=== PATIENT | female | born 2005 | race Caucasian/White ===

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

== ENCOUNTER 2023-01-06 13:52 | Emergency (ER) | payer OTHER, SELFPAY ==
--- NOTE | 2023-01-06 14:17 | HMH.EDGENADL ---
Discharge Plan Disposition Patient Disposition: Home, Self-Care Condition: Good Prescriptions Prescriptions: No Action norethindrone-e.estradiol-iron [12/06 ()] 1 mg-20 mcg (21)/75 mg (7) tablet 1 tab PO DAILY Qty: 28 11RF PNV cmb#95-ferrous fumarate-FA [] 28 mg iron- 800 mcg tablet 1 tab PO DAILY cefdinir 300 mg capsule 300 mg PO BID Qty: 20 0RF Referrals Follow up/Referrals: Vicky Leyva MD [Primary Care Provider] - See instructions Activity Restrictions/Add. Instructions Additional Instructions/Restrictions: Follow-up with your primary care doctor regarding chronic treatment of your migraines. Return to the emergency department with any concerning neurologic symptoms. Clinical Impressions Clinical Impression: Migraine Discharge ED Provider: Damon Whitley Adult HPI General Chief complaint: Headache Stated complaint: passed out 4 times today, face feels numb, foam Time Seen by Provider: 01/06/23 14:17 History of Present Illness HPI narrative: Patient is a 17-year-old female presenting with headache. States this has been slowly worsening for the last several days there is no sudden or acute onset to this. States she had several episodes of feeling lightheaded but there is been no loss of consciousness and no near loss of consciousness to states she has to stop and relax for a moment. Denies any neck stiffness or fever associated with this. States she has had a history of chronic migraines. Recently with her family medicine doctor and got a migraine medication in addition to an isps-hno-usbhcsj NSAID which did not improve her symptoms. She does states she has some paresthesias on bilateral aspects of her face but no other neurologic symptoms currently. Related Data Home Medications Medication Instructions Recorded Confirmed vit no.95-ferrous 1 tab PO DAILY . 12/22/22 12/22/22 fumarate 28 mg-folic acid 800 mcg tablet () Previous Rx's Medication Instructions Recorded norethindrone 1 mg-ethinyl 1 tab PO DAILY #28 tabs 06/25/22 estradiol 20 mcg (21)-iron 75 mg (7) tablet (12/06 ()) cefdinir 300 mg capsule 300 mg PO BID #20 caps 12/22/22 Allergies Allergy/AdvReac Type Severity Reaction Status Date / Time azithromycin [AZITHROMYCIN] Allergy Mild Verified 01/06/23 14:24 [facility] Disclaimer: The information contained in this section may have been updated after the patient was seen, as this information can be updated by other users. Social History Smoking Status: Current every day smoker tobacco type: e-cigarettes alcohol intake: never substance use type: denies use current occupational status: other Travel in the last 8 weeks: None household members: family housing: house ROS Obtained: Yes All systems reviewed & no additional complaints except as documented Physical Exam General General appearance: alert and in no apparent distress Respiratory Respiratory exam: Present normal lung sounds bilaterally Cardiovascular Cardiovascular exam: Present regular rate; Absent tachycardia Neurological Exam Neurological exam: Present alert (Alert and oriented cranial nerves II through XII are intact normal motor and sensory function upper and lower extremities normal coordination examination clinic finger-nose dwui-sv-zhyx gait specifically with regards to her face she does have normal sensation in V1 through V3 distribution bilaterall) Medical Decision Making Silvano Inquiry Pt receiving controlled substance: No Silvano was queried for this patient: No Vital Signs: 01/06/23 14:19 01/06/23 14:43 01/06/23 15:00 Temperature 98.7 F Temperature Source Oral Pulse Rate 78 56 L Pulse Rate [Left] 75 Respiratory Rate 16 20 Blood Pressure 114/74 102/65 L Blood Pressure [Right Arm] 116/81 Blood Pressure Mean 84 74 Blood Pressure Mean [Right A
[2023-01-06 14:19] VITALS: BP 116/81; PULSE 75; RESP 16; TEMP 37.1; O2SAT 98; BMI 23.3
--- NOTE | 2023-01-06 14:40 | ECG_ITS ---
APPROVED REPORT Exam: Resting ECG HR:69 bpm ECG Measurements Heart Rate 69 AXES MT 148 P 71 QRSd 81 QRS 61 QT 358 T 39 QTc 378 Conclusion SINUS RHYTHM WITH SINUS ARRHYTHMIA POSSIBLE RIGHT VENTRICULAR CONDUCTION DELAY [RSR (QR) IN V1/V2] BORDERLINE ECG UNCONFIRMED REPORT Electronically signed by : Bill Londno MD 01/06/2023 18:57:42
[2023-01-06 14:43] VITALS: BP 114/74; PULSE 78; O2SAT 99
[2023-01-06 15:00] VITALS: BP 102/65; PULSE 56; RESP 20; O2SAT 98
[2023-01-06 16:03] VITALS: BP 119/71; PULSE 77; RESP 16; TEMP 36.9; O2SAT 98
== END 2023-01-06 16:04 | disposition home or self-care (01) ==
PROVIDERS: Emergency Provider Student in an Organized Health Care Education/Training Program; PCP Family Medicine
DX: G43.909 Migraine, unspecified, not intractable, without status migrainosus (principal); F17.210 Nicotine dependence, cigarettes, uncomplicated
CPT/HCPCS: 93005; 96361; 96374; 96375; 99285

== ENCOUNTER 2023-03-05 18:08 | Emergency (ER) | payer OTHER, SELFPAY ==
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
[2023-03-05 19:30] VITALS: BP 117/74; PULSE 81; RESP 18; TEMP 37; O2SAT 98; BMI 23.0
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
[2023-03-05 20:13] VITALS: BP 117/74; PULSE 81; RESP 18; TEMP 37; O2SAT 98
== END 2023-03-05 20:14 | disposition home or self-care (01) ==
PROVIDERS: Emergency Provider Nurse Practitioner; PCP Family Medicine
DX: S69.91XA Unspecified injury of right wrist, hand and finger(s), initial encounter (principal); Z87.891 Personal history of nicotine dependence; W22.09XA Striking against other stationary object, initial encounter
CPT/HCPCS: 73130; 99212; 99213; G0463

== ENCOUNTER 2023-05-10 23:52 | Emergency (ER) | payer OTHER, SELFPAY ==
[2023-05-10 23:53] VITALS: BP 115/67; PULSE 75; RESP 17; TEMP 36.7; O2SAT 98; BMI 23.1
--- NOTE | 2023-05-11 00:15 | XR_ITS ---
PROCEDURE INFORMATION: Exam: XR Right Hand Exam date and time: 05/11/2023 12:12 AM Age: 18 years old Clinical indication: Pain; Hand; Right; Additional info: Hand trauma, pain swelling to knuckles TECHNIQUE: Imaging protocol: Radiologic exam of the right hand. Views: 3 or more views. COMPARISON: CR XR HAND RT MIN 3V 03/05/2023 6:15 PM FINDINGS: Bones/joints: The hand is normally aligned. The joint spaces are intact. There is a subtle vertical lucency of the 5th metacarpal head noted on the PA view which could represent a nondisplaced fracture. Old healed distal 5th metacarpal fracture is noted as well. Soft tissues: Normal. IMPRESSION: Subtle vertical lucency of the 5th metacarpal head could represent an acute fracture. Correlation with the clinical exam is recommended.
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
[2023-05-11 01:29] VITALS: BP 118/75; PULSE 72; RESP 17; TEMP 36.7; O2SAT 98
== END 2023-05-11 01:31 ==
PROVIDERS: Emergency Provider Emergency Medicine; PCP Family Medicine
DX: S62.347A Nondisplaced fracture of base of fifth metacarpal bone, left hand, initial encounter for closed fracture (principal); F17.290 Nicotine dependence, other tobacco product, uncomplicated; W22.8XXA Striking against or struck by other objects, initial encounter
CPT/HCPCS: 73130; 99283

== ENCOUNTER → 2023-08-22 08:14 | Outpatient (CLI) | payer OTHER, SELFPAY ==
[2023-08-22 08:56] LABS: Basophils # 0.1 K/mm3 (0-0.2); Basophils % 0.7 % (0.1-2.0); Eosinophils # 0.1 K/mm3 (0.0-0.4); Eosinophils % 2.1 % (0.1-12.0); Hematocrit 41.3 % (37.0-47.0); Hemoglobin 13.3 g/dL (12.2-16.2); Lymphocytes # 2.1 K/mm3 (0.7-4.5); Lymphocytes % 31.4 % (10-50); Mean Corpuscular HGB Conc 32.1 g/dL (31.8-35.4); Mean Corpuscular Hemoglobin 28.4 pg (27.0-31.2); Mean Corpuscular Volume 88.2 fl (81-99); Mean Platelet Volume 7.1 fl (7.4-10.4); Monocytes # 0.4 K/mm3 (0.1-1.0); Monocytes % 5.9 % (1.7-9.3); Neutrophils % 59.8 % (37.0-80.0); Platelet Count 392 K/mm3 (142-424); Red Blood Count 4.69 M/mm3 (4.20-5.40); Red Cell Distribution Width 15.6 % (11.5-17.5); White Blood Count 6.6 K/mm3 (4.5-13.0)
[2023-08-22 10:57] LABS: Alanine Aminotransferase 19 U/L (12-78); Albumin Level 4.5 g/dl (3.5-5.0); Albumin/Globulin Ratio 1.5 (1.1-1.8); Alkaline Phosphatase 90 U/L (38-126); Anion Gap 11.9 mEq/L (5-15); Aspartate Amino Transferase 22 U/L (14-36); Blood Urea Nitrogen 8 mg/dl (7-17); Calcium 9.7 mg/dl (8.4-10.2); Carbon Dioxide 27 mmol/L (22.0-30.0); Chloride 106 mmol/L (98-107); Estimated Glomerular Filt Rate 107 ml/min (>60); GFR (African American) 129 ML/MIN (>60); Globulin 3.1 g/dL (1.3-3.2); Glucose 87 mg/dl (74-100); Glucose,Fasting 87 mg/dl (74-100); Potassium 3.9 mmoL/L (3.5-5.1); Sodium 141 mmol/L (136-145); Total Protein,Serum 7.6 g/dl (6.3-8.2)
[2023-08-22 11:24] LABS: Thyroid Stimulating Hormone 1.27 uIU/mL (0.465-4.68)
[2023-08-23 08:19] LABS: Estradiol 24.2 pg/mL (.); FSH 6.4 mIU/mL (.)
[2023-08-23 16:24] LABS: Insulin Level Total 6.2 uIU/mL (2.6-24.9)
[2023-08-27 06:04] LABS: Testosterone, Total, LC/MS 27 ng/dL (.)
[2023-08-28 08:26] LABS: Anti Mullerian Hormone (AMH) 8.93
== END ==
PROVIDERS: PCP Family Medicine; Visit Provider Obstetrics & Gynecology
DX: Z31.69 Encounter for other general counseling and advice on procreation (principal)
CPT/HCPCS: 36415; 80053; 82397; 82670; 82947; 83001; 83036; 83525; 84403; 84443; 85025

== ENCOUNTER → 2023-09-08 14:39 | Outpatient (CLI) | payer OTHER, SELFPAY ==
--- NOTE | 2023-09-08 14:40 | US_ITS ---
PROCEDURE: US TRANSVAGINAL CLINICAL INDICATION: irregular periods COMPARISON: No exams were available for comparison FINDINGS: Transabdominal sonographic images of the pelvis were obtained. UTERUS: 7.2 cm x 3.6 cmx 2.7 cm with a combined endometrial thickness of 6.7mm. Uterus is anteverted. LEFT OVARY: 3.2 cmx2.6 cmx1.8cm with a volume of 7.9ml. There are multiple small follicles. RIGHT OVARY: 3.2 cmx 3.1 cm x1.6 cm with a volume of 8.3ml. There are multiple small follicles. Both ovaries are seen and appear polycystic. Doppler flow to both ovaries are seen. There is trace fluid in the cul-de-sac. IMPRESSION: 1. Anteverted uterus, normal in shape and size. The endometrium is thin. 2. Both ovaries have a polycystic appearance with multiple small peripheral follicles. 3. There is trace fluid in the cul-de-sac. Dictated by: Arash Amos MD 09/08/2023 19:51 Arash Amos MD in [place] 09/08/2023 19:51
== END ==
PROVIDERS: PCP Family Medicine; Visit Provider Obstetrics & Gynecology
DX: N92.6 Irregular menstruation, unspecified (principal)
CPT/HCPCS: 76830

== ENCOUNTER 2023-12-12 18:36 | Emergency (ER) | payer SELFPAY ==
[2023-12-12 18:38] VITALS: BP 100/69; PULSE 96; RESP 18; TEMP 37.2; O2SAT 100; BMI 20.5
--- NOTE | 2023-12-12 18:42 | XR_ITS ---
PROCEDURE INFORMATION: Exam: XR Right Wrist Exam date and time: 12/12/2023 6:42 PM Age: 18 years old Clinical indication: Injury or trauma; Fall; Blunt trauma (contusions or hematomas); Wrist; Right; Additional info: Fall. Swelling and redness, pain TECHNIQUE: Imaging protocol: Radiologic exam of the right wrist. Views: 3 or more views. COMPARISON: CR [id number] XR wrist RT 2V 01/04/2018 4:26 PM FINDINGS: Bones/joints: Normal. Soft tissues: Normal. IMPRESSION: No acute findings.
--- NOTE | 2023-12-12 18:42 | XR_ITS ---
PROCEDURE INFORMATION: Exam: XR Right Hand Exam date and time: 12/12/2023 6:43 PM Age: 18 years old Clinical indication: Injury or trauma; Fall; Blunt trauma (contusions or hematomas); Hand; Right; Additional info: Fall. Swelling and redness, pain TECHNIQUE: Imaging protocol: Radiologic exam of the right hand. Views: 3 or more views. COMPARISON: CR XR HAND RT MIN 3V 05/11/2023 12:12 AM FINDINGS: Bones/joints: Normal. Soft tissues: Normal. IMPRESSION: No acute findings.
--- NOTE | 2023-12-12 18:42 | XR_ITS ---
PROCEDURE INFORMATION: Exam: XR Right Forearm Exam date and time: 12/12/2023 6:48 PM Age: 18 years old Clinical indication: Injury or trauma; Fall; Blunt trauma (contusions or hematomas); Arm, lower; Right; Additional info: Fall. Swelling and redness at wrist, pain TECHNIQUE: Imaging protocol: Radiologic exam of the right forearm. Views: 2 views. COMPARISON: CR Hand R 12/12/2023 6:43 PM FINDINGS: Bones/joints: Normal. Soft tissues: Normal. IMPRESSION: No acute findings.
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
[2023-12-12 19:36] VITALS: BP 100/69; PULSE 96; RESP 18; TEMP 37.2; O2SAT 100
== END 2023-12-12 19:36 | disposition home or self-care (01) ==
PROVIDERS: Emergency Provider Nurse Practitioner Family; PCP Family Medicine
DX: S63.91XA Sprain of unspecified part of right wrist and hand, initial encounter (principal); S63.501A Unspecified sprain of right wrist, initial encounter; M79.641 Pain in right hand; M25.531 Pain in right wrist; F17.290 Nicotine dependence, other tobacco product, uncomplicated; W19.XXXA Unspecified fall, initial encounter
CPT/HCPCS: 73090; 73110; 73130; 99212; 99214; G0463

== ENCOUNTER 2024-02-04 18:35 | Outpatient (CLI) | payer OTHER, SELFPAY | END 2024-02-04 23:59 | LOC: LAB.DROPOF 18:38 | PROVIDERS: PCP Nurse Practitioner Family; Visit Provider Nurse Practitioner Family | DX: J02.9 Acute pharyngitis, unspecified (principal); R05.1 Acute cough | CPT/HCPCS: 87070 ==

== ENCOUNTER 2024-05-27 23:42 | Emergency (ER) | payer OTHER, SELFPAY ==
[2024-05-27 23:44] VITALS: BP 121/86; PULSE 75; RESP 18; TEMP 36.8; O2SAT 100; BMI 21.4
--- NOTE | 2024-05-27 23:54 | CT_ITS ---
PROCEDURE INFORMATION: Exam: CT Head Without Contrast Exam date and time: 05/28/2024 12:41 AM Age: 19 years old Clinical indication: Pain; Headache; Additional info: Acute headache TECHNIQUE: Imaging protocol: Computed tomography of the head without contrast. Radiation optimization: All CT scans at this facility use at least one of these dose optimization techniques: automated exposure control; mA and/or kV adjustment per patient size (includes targeted exams where dose is matched to clinical indication); or iterative reconstruction. COMPARISON: No relevant prior studies available. FINDINGS: Brain: Normal. No hemorrhage. Unremarkable white matter. No mass effect. Cerebral ventricles: No ventriculomegaly. Pituitary gland and sella: Negative Paranasal sinuses: Visualized sinuses are unremarkable. No fluid levels. Mastoid air cells: Visualized mastoid air cells are well aerated. Orbital cavities: Negative. Parotid and submandibular glands: Negative Bones: Unremarkable. No acute fracture. Soft tissues: Unremarkable. Vasculature: Negative. IMPRESSION: No acute intracranial abnormality.
--- NOTE | 2024-05-28 00:07 | ED_ITS ---
Discharge Plan Disposition Patient Disposition: Home, Self-Care Condition: Good Prescriptions Prescriptions: New ondansetron 4 mg tablet,disintegrating 4 mg PO TID PRN (Reason: nausea and vomiting) 4 Days Qty: 10 0RF No Action levocetirizine [Xyzal] 5 mg tablet 5 mg PO HS Qty: 90 3RF fluticasone propionate [Flonase Allergy Relief] 50 mcg/actuation spray,suspension 1 spray intranasal DAILY Qty: 10 2RF Rx Instructions: administer into each nostril ofloxacin 0.3 % drops 1 drp ophthalmic (eye) QID Qty: 10 0RF Referrals Follow up/Referrals: Annmarie Beckett [Primary Care Provider] - See instructions Activity Restrictions/Add. Instructions Additional Instructions/Restrictions: You were evaluated in the ER. You are appropriate for discharge at this time. Take Tylenol or ibuprofen as needed for pain, do not exceed the recommended dose on the bottle. Take the prescribed Zofran if needed for nausea/vomiting. Drink plenty of fluids. Make an appointment with your primary care physician for reevaluation in 2 to 3 days. Return to the ER with new, worsening, or otherwise concerning symptoms. Clinical Impressions Clinical Impression: Headache Discharge ED Provider: Earnestine Peters Adult HPI General Chief complaint: Headache Stated complaint: hardwick, vomiting, dizziness Time Seen by Provider: 05/27/24 23:54 Mode of Arrival: Ambulatory Source of Information: Patient and Significant Other Limitations: No Limitations Description of Symptoms (Recalled from ER Triage Doc. by RN): Patient reports that she's had a mild generalized headache since lunch today. Approximately 2310 this headache became signficiantly worse with nausea, emesis x3, lightheadedness, and 10/10 sharp, generalized pain. Patient states that the pain is all over her head. Took no medication at home. Denies light sensitivity or sound sensitivity. History of Present Illness HPI narrative: Otherwise healthy 19-year-old female presents to the ER for concerns of headache. She states she had mild headache since around lunchtime today, but around 11 PM she suddenly had severe worsening with nausea and 3 episodes of emesis. She describes the pain as 10 out of 10 and sharp, throbbing throughout the head. She denies sensitivity to light or sound but states that looking up causes some discomfort. No vision changes. No diarrhea. Patient does not report a history of migraines, she states she cannot swallow pills so she has not taken anything for her headache. No other symptoms at this time. Patient ambulatory on arrival. She denies deficits in the arms or legs. Related Data Previous Rx's Medication Instructions Recorded fluticasone propionate 50 1 spray intranasal DAILY #10 mL 02/04/24 mcg/actuation nasal spray,suspension (Flonase Allergy Relief) levocetirizine 5 mg tablet (Xyzal) 5 mg PO HS #90 tabs 02/04/24 ofloxacin 0.3 % eye drops 1 drp ophthalmic (eye) QID #10 mL 04/30/24 ondansetron 4 mg disintegrating 4 mg PO TID PRN nausea and 05/28/24 tablet vomiting 4 days #10 tabs Allergies Allergy/AdvReac Type Severity Reaction Status Date / Time azithromycin [AZITHROMYCIN] Allergy Mild Verified 04/30/24 13:30 [facility] Disclaimer: The information contained in this section may have been updated after the patient was seen, as this information can be updated by other users. Medical History Self mutilating behavior Gastroenteritis Left wrist injury Forearm contusion Fx metacarpal Hand injury Amenorrhea Closed fracture of 5th metacarpal Irregular menstrual cycle Fracture of hand Sprain of hand, right Seasonal allergies Medical clearance for incarceration Hand injury Migraine PCOS (polycystic ovarian syndrome) Surgical History No history of previous surgery Family History Mother Cancer unknown type Social History Smoking Status: Never smoker alcohol intake: never substance use type: denies use current occupational status: other Travel in the last 8 weeks: None household members: family housing: house ROS Obtained: Yes All systems reviewed & no additional complaints except as documented Constitutional Constitutional: Reports headache(s) Eyes Eyes: Denies change in vision ENT Ears, Nose, Mouth, and Throat: Reports headache(s) Cardiovascular Cardiovascular: Denies chest pain, Denies dyspnea and Denies leg edema Respiratory Respiratory: Denies cough and Denies dyspnea Gastrointestinal Gastrointestingal: Reports nausea and vomiting; Denies abdominal pain, constipation or diarrhea Genitourinary Female Genitourinary: Denies dysuria Musculoskeletal Musculoskeletal: Denies arthralgias, Denies myalgias, Denies numbness and Denies tingling Integumentary/Breasts Skin/Breast: Denies change in pigmentation Neurologic Neurologic: Reports headache(s), Denies numbness and Denies tingling Physical Exam General General appearance: alert and in no apparent distress Head Head exam: atraumatic and normocephalic Eye Eye exam: Present PERRL and EOMI (Patient reports increase in headache pain when looking up, no eye pain with extraocular movements); Absent nystagmus ENT ENT exam: Present mucous membranes moist Neck Neck exam: Present normal inspection and full ROM Chest Chest inspection: Present symmetric chest wall rise Respiratory Respiratory exam: Absent respiratory distress or stridor Cardiovascular Cardiovascular exam: Present regular rate and normal rhythm Extremities Exam Extremities exam: Present full ROM Neurological Exam Neurological exam: Present alert, oriented X3, CN II-XII intact and normal gait; Absent motor sensory deficit Psychiatric Psychiatric exam: Present normal affect and normal mood Skin Skin exam: Present warm and dry Medical Decision Making Silvano Inquiry Pt receiving controlled substance: No Vital Signs: 05/27/24 23:44 05/28/24 00:58 05/28/24 01:09 Temperature 98.2 F Temperature Source Oral Pulse Rate 80 Pulse Rate [Left Radial] 75 Respiratory Rate 18 Blood Pressure 116/82 105/80 L Blood Pressure [Right Arm] 121/86 Blood Pressure Mean 91 87 Blood Pressure Mean [Right Arm] 97 Blood Pressure Source Blood Pressure Source [Right Arm] Automatic Cuff Blood Pressure Position Blood Pressure Position [Right Arm] Sitting 02 Sat by Pulse Oximetry 100 100 Oxygen Delivery Method Room Air Room Air 05/28/24 01:15 Temperature Temperature Source Pulse Rate 60 Pulse Rate [Left Radial] Respiratory Rate 20 Blood Pressure 105/80 L Blood Pressure [Right Arm] Blood Pressure Mean Blood Pressure Mean [Right Arm] Blood Pressure Source Automatic Cuff Blood Pressure Source [Right Arm] Blood Pressure Position Sitting Blood Pressure Position [Right Arm] 02 Sat by Pulse Oximetry 99 Oxygen Delivery Method Room Air Lab Data Lab Results 05/28/24 00:13: WBC 8.5, RBC 4.47, Hgb 12.9, Hct 40.2, MCV 89.9, MCH 28.9, MCHC 32.1, RDW 15.4, Plt Count 380, MPV 6.9 L, Neut % (Auto) 52.2, Lymph % (Auto) 39.6, Perry % (Auto) 5.4, Eos % (Auto) 1.9, Baso % (Auto) 0.9, Neut # (Auto) 4.4, Lymph # (Auto) 3.4, Perry # (Auto) 0.5, Eos # (Auto) 0.2, Baso # (Auto) 0.1, Sodium 142, Potassium 3.8, Chloride 109 H, Carbon Dioxide 27, Anion Gap 9.8, BUN 9, Creatinine 0.70, Estimated Creat Clear 114, Estimated GFR 106, Est GFR ( Amer) 128, Glucose 98, Calcium 9.8, Total Bilirubin 0.4, AST 28, ALT 22, Alkaline Phosphatase 80, Total Protein 8.7 H, Albumin 4.8, Globulin 3.9 H, Albumin/Globulin Ratio 1.2, Serum HCG, Qual Negative 05/28/24 00:13 05/28/24 00:13 Orders (Tests/Meds): ED MEDICATIONS Discontinued Medications Generic Name Dose Route Start Last Admin Trade Name Freq PRN Reason Stop Dose Admin Acetaminophen 1,000 mg 05/28/24 00:06 05/28/24 00:15 Acetaminophen 1,000mg/100ml Vial IV 05/28/24 00:07 1,000 mg ONCE ONE Administration Diphenhydramine HCl 25 mg 05/28/24 00:47 05/28/24 01:09 Diphenhydramine 50mg/Ml Vial IV 05/28/24 00:48 25 mg ONCE ONE Administration Lactated Ringer's 1,000 mls @ 999 mls/hr 05/28/24 00:06 05/28/24 00:14 Lactated Ringer's 1000 Ml Bag IV 05/28/24 01:06 999 mls/hr .Q1H1M ONE Administration Ketorolac Tromethamine 30 mg 05/28/24 00:47 05/28/24 01:10 Ketorolac 30mg/Ml Vial IV 05/28/24 00:48 30 mg ONCE ONE Administration Ondansetron HCl 4 mg 05/28/24 00:06 05/28/24 00:15 Ondansetron 4mg/2ml Vial IV 05/28/24 00:07 4 mg ONCE ONE Administration ORDERS Category Date Time Status CT head/brain wo con Stat Cat Scan 05/27/24 23:54 Completed CBC w/Auto Diff [Complete Blood Count Auto Diff] Stat Lab 05/27/24 23:54 Completed CMP [Comprehensive Metabolic Panel] Stat Lab 05/27/24 23:54 Completed HCG Qualitative, Serum Stat Lab 05/27/24 23:54 Completed Medical Decision Narrative: In summary, this 19-year-old female presents to the emergency department today with headache with sudden acute worsening accompanied by nausea and vomiting. On initial evaluation patient is hemodynamically stable, afebrile, GCS 15, no neurologic deficits. Differential diagnosis includes but is not limited to headache, migraine, given the acute worsening with associated symptoms of nausea and vomiting, I did consider spontaneous intracranial bleed. Based on these concerns, I ordered basic labs, test, CT head. Patient received IV acetaminophen and Zofran as well as IV fluids in the ER. Labs personally reviewed demonstrate no leukocytosis or anemia, CMP nonactionable, no findings of kidney or liver dysfunction, test negative. CT head personally interpreted does not demonstrate any acute cranial abnormality such as bleed, midline shift, or mass. See radiology read for final interpretation. On reassessment patient has had improvement of symptoms and is playing on her phone. She is appropriate for discharge at this time. She is encouraged to take Tylenol and ibuprofen at home and was prescribed Zofran. Patient was given instructions on symptomatic management, follow up instructions, and return precautions for the emergency department. Patient indicated understanding and was discharged in stable condition. Critical Care Critical Care Time Critical Care Time: No
[2024-05-28] MEDS: LACTATED RINGERS 1000ML 1,000 ML 999 ML IV (00:14)
[2024-05-28] MEDS: ACETAMINOPHEN 1,000MG/100ML VIAL 1000 MG IV (00:15)
[2024-05-28] MEDS: ONDANSETRON 4MG/2ML VIAL 4 MG IV (00:15)
[2024-05-28 00:23] LABS: Basophils # 0.1 K/mm3 (0-0.2); Basophils % 0.9 % (0.1-2.0); Eosinophils # 0.2 K/mm3 (0.0-0.4); Eosinophils % 1.9 % (0.1-12.0); Hematocrit 40.2 % (37.0-47.0); Hemoglobin 12.9 g/dL (12.2-16.2); Lymphocytes # 3.4 K/mm3 (0.7-4.5); Lymphocytes % 39.6 % (10-50); Mean Corpuscular HGB Conc 32.1 g/dL (31.8-35.4); Mean Corpuscular Hemoglobin 28.9 pg (27.0-31.2); Mean Corpuscular Volume 89.9 fl (81-99); Mean Platelet Volume 6.9 fl (7.4-10.4); Monocytes # 0.5 K/mm3 (0.1-1.0); Monocytes % 5.4 % (1.7-9.3); Neutrophils # 4.4 K/mm3 (1.8-7.8); Neutrophils % 52.2 % (37.0-80.0); Platelet Count 380 K/mm3 (142-424); Red Blood Count 4.47 M/mm3 (4.20-5.40); Red Cell Distribution Width 15.4 % (11.5-17.5); White Blood Count 8.5 K/mm3 (4.8-10.8)
[2024-05-28 00:26] LABS: Chloride 109 mmol/L (98-107)
[2024-05-28 00:27] LABS: Potassium 3.8 mmoL/L (3.5-5.1); Sodium 142 mmol/L (136-145)
[2024-05-28 00:28] LABS: HCG Qualitative, Serum Negative (Negative)
[2024-05-28 00:29] LABS: Alanine Aminotransferase 22 U/L (12-78); Aspartate Amino Transferase 28 U/L (14-36); Bilirubin,Total 0.4 mg/dl (0.2-1.3); Blood Urea Nitrogen 9 mg/dl (7-17); Creatinine Clearance Estimated 114 mL/min (50-200); Estimated Glomerular Filt Rate 106 ml/min (>60); GFR (African American) 128 ML/MIN (>60)
[2024-05-28 00:30] LABS: Albumin Level 4.8 g/dl (3.5-5.0); Albumin/Globulin Ratio 1.2 (1.1-1.8); Alkaline Phosphatase 80 U/L (38-126); Anion Gap 9.8 mEq/L (5-15); Calcium 9.8 mg/dl (8.4-10.2); Carbon Dioxide 27 mmol/L (22.0-30.0); Globulin 3.9 g/dL (1.3-3.2); Glucose 98 mg/dl (74-100); Total Protein,Serum 8.7 g/dl (6.3-8.2)
[2024-05-28 00:58] VITALS: BP 116/82
[2024-05-28 01:09] VITALS: BP 105/80; PULSE 80; O2SAT 100
[2024-05-28] MEDS: diphenhydrAMINE 50MG/ML VIAL 25 MG IV (01:09)
[2024-05-28] MEDS: KETOROLAC 30MG/ML VIAL 30 MG IV (01:10)
[2024-05-28 01:15] VITALS: BP 105/80; PULSE 60; RESP 20; O2SAT 99
[2024-05-28 01:32] VITALS: BP 113/65; PULSE 67; RESP 17; TEMP 36.7; O2SAT 100
== END 2024-05-28 01:35 | disposition home or self-care (01) ==
PROVIDERS: Emergency Provider Emergency Medicine; PCP Family Medicine Sports Medicine
DX: R51.9 Headache, unspecified (principal); R11.2 Nausea with vomiting, unspecified; R42 Dizziness and giddiness
CPT/HCPCS: 70450; 80053; 84703; 85025; 96361; 96374; 96375; 99284; J0131; J1885; J2405; J7120

== ENCOUNTER 2024-07-23 10:56 | Emergency (ER) | payer OTHER, SELFPAY ==
--- NOTE | 2024-07-23 11:31 | EXP.UTC ---
Discharge Plan Disposition Patient Disposition: Home, Self-Care Condition: Good Prescriptions Prescriptions: New cephalexin 500 mg capsule 500 mg PO QID 7 Days Qty: 28 0RF No Action metronidazole 0.75 % cream 1 applic topical HS Qty: 45 0RF Referrals Follow up/Referrals: Annmarie Beckett [Primary Care Provider] - See instructions Activity Restrictions/Add. Instructions Additional Instructions/Restrictions: Keep the wound clean and dry. Keep a dressing on it if you are going to be getting it dirty. Watch the wound for signs of infection, such as redness, swelling, drainage, fever. etc. Take tylenol or ibuprofen for pain. Follow up with your regular doctor. Return in 7 days to have the sutures removed. GO TO THE ER FOR ANY WORSENING SYMPTOMS OR CONCERNS. Clinical Impressions Clinical Impression: Laceration of left thumb, Need for Tdap vaccination Stand Alone Forms Stand Alone Forms: Work/School Release Instructions Patient Instructions: DI for Laceration Repair -- Finger, Tetanus, Diphtheria, Pertussis (Tdap) Vaccine Print Language Print Language: Citizen Of [place] Discharge ED Provider: Serge Watt 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 Her tetanus immunization is not up to date. Related Data Previous Rx's ?Medication ?Instructions ?Recorded metronidazole 0.75 % topical cream 1 applic topical HS #45 grams 07/08/24 cephalexin 500 mg capsule 500 mg PO QID 7 days #28 caps 07/23/24 Allergies Allergy/AdvReac Type Severity Reaction Status Date / Time azithromycin [AZITHROMYCIN] Allergy Mild Verified 07/08/24 14:31 adapalene Allergy Unknown Verified 07/08/24 14:45 [facility] Disclaimer: The information contained in this section may have been updated after the patient was seen, as this information can be updated by other users. Medical History Self mutilating behavior Gastroenteritis Left wrist injury Forearm contusion Fx metacarpal Hand injury Amenorrhea Closed fracture of 5th metacarpal Irregular menstrual cycle Fracture of hand Sprain of hand, right Seasonal allergies Medical clearance for incarceration Hand injury Migraine PCOS (polycystic ovarian syndrome) Surgical History No history of previous surgery Family History Mother Cancer unknown type Social History Smoking Status: Never smoker alcohol intake: never substance use type: denies use current occupational status: other Travel in the last 8 weeks: None household members: family housing: house ROS Obtained: Yes All systems reviewed & no additional complaints except as documented Constitutional Constitutional: Denies chills and Denies fever(s) Eyes Eyes: Denies eye discharge ENT Ears, Nose, Mouth, and Throat: Denies dizziness, Denies otalgia and Denies sore throat Cardiovascular Cardiovascular: Denies chest pain Respiratory Respiratory: Denies shortness of breath, Denies chest congestion, Denies cough, Denies stridor and Denies wheezing Gastrointestinal Gastrointestingal: Denies nausea or vomiting Musculoskeletal Musculoskeletal: Reports system reviewed and no additional complaints, except as documented and Denies arthralgias Integumentary/Breasts Skin/Breast: Reports as per HPI Neurologic Neurologic: Denies dizziness and Denies paresthesias Allergic/Immunologic Allergic/Immunologic: Denies wheezing Physical Exam General General appearance: alert and in no apparent distress Head Head exam: atraumatic, normocephalic and normal inspection Eye Eye exam: Present normal appearance, PERRL and EOMI ENT ENT exam: Present normal exam, normal oropharynx, mucous membranes moist, TM's normal bilaterally and normal external ear exam Neck Neck exam: Present normal inspection, full ROM and trachea midline; Absent meningismus or lymphadenopathy Chest Chest inspection: Present normal inspection and symmetric chest wall rise; Absent tenderness Respiratory Respiratory exam: Present normal lung sounds bilaterally; Absent respiratory distress Cardiovascular Cardiovascular exam: Present regular rate and normal rhythm; Absent JVD Abdominal Exam Abdominal exam: Present soft and normal bowel sounds; Absent distention, tenderness or guarding Extremities Exam Extremities exam: Present normal inspection, full ROM and normal capillary refill; Absent calf tenderness Back Exam Back exam: Present normal inspection; Absent tenderness Neurological Exam Neurological exam: Present alert and oriented X3 Psychiatric Psychiatric exam: Present normal affect and normal mood Skin Skin exam: Present other (there is a 1 cm linear laceration on the lateral aspect of the tip of her left thumb. no nail involvement. no deep tissue or tendon damage noted. no foreign body. she has good 2 point touch discrimination distal to the wound. ) Lymphatic Lymphatic Findings: no adenopathy Medical Decision Making Medical Records Medical records reviewed: No I reviewed the patient's medical records. Silvano Inquiry Pt receiving controlled substance: No Procedures Risk/Benefits of Procedure(s) Were Explained: Yes Laceration Laceration 1: Site: thumb Side (If applicable): left Size (cm): 1 Description: linear Depth: simple, single layer Local Anesthetic: lidocaine 1% Amount of anesthesia used (mL): 0.5 Pre-repair: wound explored, irrigated extensively and deep structures intact Skin layer closed with: nylon Size (cm): 6-0 Number of sutures: 4 Technique: simple, interrupted (She tolerated this well, good closure was obtained, the edges were approximated well. )
[2024-07-23 11:50] VITALS: BP 120/87; PULSE 67; RESP 16; TEMP 36.9; O2SAT 100; BMI 21.4
[2024-07-23] MEDS: TET/DIPHTH/PERT-ADULT 0.5ML SYRINGE 0.5 ML IM (12:14)
[2024-07-23 12:54] VITALS: BP 120/87; PULSE 67; RESP 16; TEMP 36.9; O2SAT 100
== END 2024-07-23 12:55 | disposition home or self-care (01) ==
PROVIDERS: Emergency Provider Nurse Practitioner Family; PCP Family Medicine Sports Medicine
DX: S61.012A Laceration without foreign body of left thumb without damage to nail, initial encounter (principal); Z23 Encounter for immunization; W26.8XXA Contact with other sharp object(s), not elsewhere classified, initial encounter
CPT/HCPCS: 12001; 90471; 90715; 99213; 99214; G0463

== ENCOUNTER 2024-09-02 18:07 | Outpatient (CLI) | payer OTHER, SELFPAY ==
[2024-09-02 17:39] LABS: Coronavirus 19, PCR Not Detected (NotDetected); Influenza A, PCR Not Detected (NotDetected); Influenza B, PCR Not Detected (NotDetected)
== END 2024-09-02 23:59 | disposition home or self-care (01) ==
LOC: LAB.DROPOF 18:08
PROVIDERS: PCP Student in an Organized Health Care Education/Training Program; Visit Provider Student in an Organized Health Care Education/Training Program
DX: Z20.822 Contact with and (suspected) exposure to COVID-19 (principal); Z20.818 Contact with and (suspected) exposure to other bacterial communicable diseases
CPT/HCPCS: 87070; 87636

== ENCOUNTER 2024-12-01 00:16 | Emergency (ER) | payer OTHER, SELFPAY ==
[2024-12-01] VITALS (7 sets, daily range): BP systolic 101–120; BP diastolic 57–98; PULSE 58–91; RESP 18–20; TEMP 36.8–36.9; O2SAT 99–100; BMI 22.3
--- NOTE | 2024-12-01 00:26 | CT_ITS ---
PROCEDURE INFORMATION: Exam: CT Maxillofacial Without Contrast Exam date and time: 12/01/2024 1:23 AM Age: 19 years old Clinical indication: Injury or trauma; Fall and other: Syncope struck head loc R mandible/eyebrow pain; Blunt trauma (contusions or hematomas) and other: Syncope struck head loc R mandible/eyebrow pain; Other: Right side of face, forehead to chin; Injury details: PT passed out, struck right side of face TECHNIQUE: Imaging protocol: Computed tomography of the face without contrast. Radiation optimization: All CT scans at this facility use at least one of these dose optimization techniques: automated exposure control; mA and/or kV adjustment per patient size (includes targeted exams where dose is matched to clinical indication); or iterative reconstruction. COMPARISON: CT HEAD/BRAIN WO CON 12/01/2024 1:21 AM FINDINGS: Paranasal sinuses: No air-fluid levels. Orbital cavities: Orbits are normal. Globes are unremarkable. Bones: No acute fracture. Soft tissues: Unremarkable. IMPRESSION: No acute findings.
--- NOTE | 2024-12-01 00:26 | CT_ITS ---
PROCEDURE INFORMATION: Exam: CT Head Without Contrast Exam date and time: 12/01/2024 1:21 AM Age: 19 years old Clinical indication: Injury or trauma; Fall; Blunt trauma (contusions or hematomas) and other: Syncope struck head loc TECHNIQUE: Imaging protocol: Computed tomography of the head without contrast. Radiation optimization: All CT scans at this facility use at least one of these dose optimization techniques: automated exposure control; mA and/or kV adjustment per patient size (includes targeted exams where dose is matched to clinical indication); or iterative reconstruction. COMPARISON: CT HEAD/BRAIN WO CON 05/28/2024 12:41 AM FINDINGS: Brain: Normal. No hemorrhage. Unremarkable white matter. No mass effect. Cerebral ventricles: No ventriculomegaly. Paranasal sinuses: Visualized sinuses are unremarkable. No fluid levels. Mastoid air cells: Visualized mastoid air cells are well aerated. Bones: Unremarkable. No acute fracture. Soft tissues: Unremarkable. IMPRESSION: No acute intracranial abnormality.
--- NOTE | 2024-12-01 00:29 | ED_ITS ---
Discharge Plan Disposition Patient Disposition: Home, Self-Care Condition: Good Prescriptions Prescriptions: No Action ondansetron 4 mg tablet,disintegrating 4 mg PO Q8H PRN (Reason: nausea and vomiting) Qty: 10 0RF mgaxvicikdcpacf-qfgszakmh-GO [Bromfed DM] 2-30-10 mg/5 mL syrup 5 ml PO Q4-6H PRN (Reason: cold symptoms) Qty: 118 0RF Referrals Follow up/Referrals: Provider,Referral, MD [Primary Care Provider] - See instructions Activity Restrictions/Add. Instructions Additional Instructions/Restrictions: You were evaluated in the ER and are appropriate for discharge at this time. Take Tylenol, ibuprofen if needed for pain, do not exceed the recommended dose on the bottle. Drink water and eat a small snack each time you take these medications to avoid side effects. Drink plenty of fluids. Make an appointment with your primary care doctor for reevaluation in 2 to 3 days. Return to the ER with new, worsening, or otherwise concerning symptoms. Clinical Impressions Clinical Impression: Syncope, Right facial pain Print Language Print Language: Ghanaian Discharge ED Provider: Earnestine Peters General Adult HPI General Chief complaint: Recheck/Abnormal Lab/Rx Stated complaint: fall, hit head Time Seen by Provider: 12/01/24 00:20 History of Present Illness HPI narrative: 19-year-old female who reports no daily medications, no known drug allergies presents to the ER for complaints of syncope and fall. Patient reports today she was feeling mildly unwell with a slight headache. She states she had poor oral intake today and decided to get up to go to the kitchen when she started feeling dizzy as she was walking. She states she started feeling nauseous so she diverted to the bathroom and as she did her vision started to go dark and she syncopized. She reportedly struck the right side of her face on the toilet on the way down. She reports passing out before the fall. She was not unconscious for very long and quickly regained full consciousness. She is only complaining of right sided facial pain, she states she actually does not have significant headache at this time, no neck pain, no numbness, tingling, weakness anywhere. She states it hurts to open and close her jaw and she feels like she cannot close her mouth all the way but when she does she does report that her teeth feel like they aligned. She does not taste blood in her mouth. She denies any chest pain, shortness of breath, she has not had any vomiting but still feels mildly nauseous, she reports she is currently on her period. She denies any cough, congestion, sore throat, runny nose, diarrhea, abdominal pain, or any other associated symptoms. Related Data Previous Rx's ?Medication ?Instructions ?Recorded aukxknrgmbvqofi-eoqlllqhpkbhbpq-DW 5 ml PO Q4-6H PRN cold symptoms 09/02/24 2 mg-30 mg-10 mg/5 mL oral syrup #118 mL (Bromfed DM) ondansetron 4 mg disintegrating 4 mg PO Q8H PRN nausea and 09/02/24 tablet vomiting #10 tabs Allergies Allergy/AdvReac Type Severity Reaction Status Date / Time azithromycin (AZITHROMYCIN) Allergy Mild Verified 09/02/24 10:38 adapalene Allergy Unknown Verified 09/02/24 10:38 [facility] Disclaimer: The information contained in this section may have been updated after the patient was seen, as this information can be updated by other users. Medical History Self mutilating behavior Gastroenteritis Left wrist injury Forearm contusion Fx metacarpal Hand injury Amenorrhea Closed fracture of 5th metacarpal Irregular menstrual cycle Fracture of hand Sprain of hand, right Seasonal allergies Medical clearance for incarceration Hand injury Migraine PCOS (polycystic ovarian syndrome) Surgical History No history of previous surgery Family History Mother Cancer unknown type Social History Smoking Status: Unknown if ever smoked alcohol intake: never substance use type: denies use current occupational status: other Travel in the last 8 weeks: None household members: family housing: house Have you lived/traveled outside US in past 30 days?: No Contact w/someone who lives/traveled outside US past 30 days?: No Exposure to someone with infectious disease in past 14 days?: No Do you have a fever (greater than 100.4 F or 38 C)?: No Have you tested positive for COVID-19: No Exposed to someone with COVID-19 in past 14 days?: No Do you have a sore throat?: No Do you have a cough?: No Do you have any weakness?: No Do you have any diarrhea?: No Are you experiencing any unusual bleeding?: No Do you have any muscle aches/pain?: No Do you have any abdominal pain?: No Are you experiencing loss of taste or smell?: No Other Medical History Have you received the Flu Vaccine for this season: No Have you received the Pneumonia Vaccine: No ROS Obtained: Yes Systems reviewed as appropriate & no additional complaints except as documented per HPI Physical Exam General General appearance: alert and in no apparent distress Head Head exam: atraumatic and normocephalic Eye Eye exam: Present PERRL and EOMI ENT ENT exam: Present mucous membranes moist and other (No obvious intraoral injury, no palpable deformity of the mandible, patient has tenderness along the right mandible without swelling, also tenderness of right TMJ) Neck Neck exam: Present normal inspection and full ROM; Absent tenderness Chest Chest inspection: Present symmetric chest wall rise Respiratory Respiratory exam: Present normal lung sounds bilaterally; Absent respiratory distress, wheezes or stridor Cardiovascular Cardiovascular exam: Present regular rate and normal rhythm Abdominal Exam Abdominal exam: Present soft; Absent distention or tenderness Extremities Exam Extremities exam: Present full ROM; Absent tenderness, edema or joint swelling Back Exam Back exam: Present full ROM; Absent tenderness Neurological Exam Neurological exam: Present alert, oriented X3 and normal gait; Absent motor sensory deficit Psychiatric Psychiatric exam: Present normal affect and normal mood Skin Skin exam: Present warm and dry Medical Decision Making Medical Records Medical records reviewed: Yes I reviewed the patient's medical records. Screening: Per USPSTF and CDC recommendations, given the prevalence of disease in our region, it is our hospital?s policy to screen for HIV and viral Hepatitis for all patients aged 18 and over and those with ongoing risk factors. MR Comment: Patient was evaluated and in December 2023 with [employer]. She was being evaluated for PCOS at that time. Advised at that time on how to take metformin. Patient reports she is not currently taking this medication. Silvano Inquiry Pt receiving controlled substance: No Vital Signs: 12/01/24 00:19 12/01/24 01:16 Temperature 98.5 F Temperature Source Oral Pulse Rate [Left Radial] 84 91 H Respiratory Rate 18 20 Blood Pressure [Right Arm] 110/57 L 120/89 Blood Pressure Mean [Right Arm] 74 99 Blood Pressure Source [Right Arm] Automatic Cuff Blood Pressure Position [Right Arm] Sitting 02 Sat by Pulse Oximetry 99 100 Oxygen Delivery Method Room Air Room Air Lab Data Lab Results 12/01/24 00:40: SARS-CoV-2 (PCR) Not detected, Influenza A Untype (PCR) Not detected, Influenza Type B (PCR) Not detected 12/01/24 00:42: WBC 9.1, RBC 4.19 L, Hgb 12.0 L, Hct 36.7 L, MCV 87.6, MCH 28.6, MCHC 32.7, RDW 13.3, Plt Count 342, MPV 8.9, Neut % (Auto) 66.7, Lymph % (Auto) 23.2, [place] % (Auto) 8.0, Eos % (Auto) 1.3, Baso % (Auto) 0.5, Neut # (Auto) 6.1, Lymph # (Auto) 2.1, [place] # (Auto) 0.7, Eos # (Auto) 0.1, Baso # (Auto) 0.1, PT 12.2, INR 1.10, Sodium 137, Potassium 3.6, Chloride 105, Carbon Dioxide 26, Anion Gap 9.6, BUN 10, Creatinine 0.70, Estimated Creat Clear 118, Estimated GFR 106, Est GFR ( Amer) 128, Glucose 112 H, Calcium 9.5, Total Bilirubin 0.4, AST 25, ALT 18, Alkaline Phosphatase 63, Troponin I < 0.01, Total Protein 7.4, Albumin 4.5, Globulin 2.9, Albumin/Globulin Ratio 1.6 12/01/24 00:53: Urine HCG, Qual Negative 12/01/24 00:42 12/01/24 00:42 Orders (Tests/Meds): ED MEDICATIONS Discontinued Medications Generic Name Dose Route Start Last Admin Trade Name Freq PRN Reason Stop Dose Admin Acetaminophen 1,000 mg 12/01/24 01:34 12/01/24 01:39 Acetaminophen 500mg Tab PO 12/01/24 01:35 1,000 mg ONCE ONE Administration Lactated Ringer's 1,000 mls @ 999 mls/hr 12/01/24 00:31 12/01/24 00:58 Lactated Ringer's 1000 Ml Bag IV 12/01/24 01:31 999 mls/hr .Q1H1M ONE Administration Ketorolac Tromethamine 15 mg 12/01/24 01:34 12/01/24 01:39 Ketorolac 30mg/Ml Vial IV 12/01/24 01:35 15 mg ONCE ONE Administration Ondansetron HCl 4 mg 12/01/24 00:31 12/01/24 00:58 Ondansetron 4mg/2ml Vial IV 12/01/24 00:32 4 mg ONCE ONE Administration ORDERS Category Date Time Status CT facial bones wo con Stat Cat Scan 12/01/24 00:[address] head/brain wo con Stat Cat Scan 12/01/24 00:26 Completed CBC w/Auto Diff [Complete Blood Count Auto Diff] Stat Lab 12/01/24 00:42 Completed CMP [Comprehensive Metabolic Panel] Stat Lab 12/01/24 00:42 Completed HIV Combo Routine Lab 12/01/24 00:31 Ordered Hepatitis C Ab Qual. W/ RFX Routine Lab 12/01/24 00:31 Ordered PT INR [Prothrombin Time INR] Stat Lab 12/01/24 00:42 Completed Rapid PCR Covid and Flu A/B Stat Lab 12/01/24 00:40 Completed Trop I [Troponin I] Stat Lab 12/01/24 00:42 Completed Urine , HCG Qual. Stat Lab 12/01/24 00:53 Completed ECG Request Stat Y 12/01/24 00:26 Ordered Medical Decision Narrative: In summary, this 19-year-old female presents to the emergency department today with concerns of right facial pain after syncope and fall. On initial evaluation patient is hemodynamically stable, afebrile, GCS 15, no focal neurologic deficits, patient has no tenderness of her neck, range of motion full, exam is only notable for tenderness to palpation of the right mandible and right TMJ as well as right eyebrow but there is no swelling or deformity appreciated, no obvious bruising, patient does not have any malocclusion or obvious intraoral injury. Differential diagnosis includes but is not limited to facial fracture, dental injury, I have low suspicion for skull fracture or intracranial bleed though these were considered, also considered cervical spine injury however by [place] C-spine rules, low risk for cervical spine injury I do not believe cervical imaging is indicated at this time. With the patient syncope I considered dehydration, electrolyte abnormality, vasovagal episode, arrhythmia, Brugada, WPW, HCM, or other arrhythmia genic abnormality. Based on these concerns, I ordered serum labs, test, CT imaging, EKG. ECG personally interpreted demonstrates sinus rhythm, rate 74, normal axis, normal OK and QTc, no STEMI. No WPW, Brugada, HCM, or other concerning abnormality. Patient received IV fluids, Zofran for treatment of current symptoms. Labs personally reviewed demonstrate No leukocytosis, trace anemia, normal platelets, PT/INR normal, CMP nonactionable, test negative. CT head personally interpreted does not demonstrate acute intracranial abnormality, see radiology read for final interpretation. CT face personally interpreted does not demonstrate obvious osseous injury, see radiology read for final interpretation. Patient received Toradol, acetaminophen for pain management. On reevaluation, patient is feeling improved. She states she would like to go home which I believe is appropriate at this time. Labs and imaging are reassuring and nonactionable. Patient was given instructions on symptomatic monitoring and management, follow up instructions, and return precautions for the emergency department. Patient indicated understanding and was discharged in stable condition. Critical Care Critical Care Time Critical Care Time: No
--- NOTE | 2024-12-01 00:43 | ECG_ITS ---
APPROVED REPORT Exam: Resting ECG HR:74 bpm ECG Measurements Heart Rate 74 AXES AK 149 P 80 QRSd 92 QRS 80 QT 362 T 58 QTc 389 Conclusion SINUS RHYTHM WITH SINUS ARRHYTHMIA POSSIBLE RIGHT VENTRICULAR CONDUCTION DELAY [RSR (QR) IN V1/V2] No STEMI Electronically signed by : PATTI FISHER, 12/01/2024 06:43:07
[2024-12-01 00:51] LABS: Coronavirus 19, PCR Not Detected (NotDetected); Influenza A, PCR Not Detected (NotDetected); Influenza B, PCR Not Detected (NotDetected)
--- NOTE | 2024-12-01 00:52 | PC.NURSE ---
EKG completed, 20G IV placed to RAC, pt in bathroom attempting to give UA at this time.
[2024-12-01 00:57] LABS: Basophils # 0.1 K/mm3 (0-0.2); Basophils % 0.5 % (0.1-2.0); Eosinophils # 0.1 K/mm3 (0.0-0.4); Eosinophils % 1.3 % (0.1-12.0); Hematocrit 36.7 % (37.0-47.0); Lymphocytes # 2.1 K/mm3 (0.7-4.5); Lymphocytes % 23.2 % (10-50); Mean Corpuscular HGB Conc 32.7 g/dL (31.8-35.4); Mean Corpuscular Hemoglobin 28.6 pg (27.0-31.2); Mean Corpuscular Volume 87.6 fl (81-99); Mean Platelet Volume 8.9 fl (7.4-10.4); Monocytes # 0.7 K/mm3 (0.1-1.0); Neutrophils # 6.1 K/mm3 (1.8-7.8); Neutrophils % 66.7 % (37.0-80.0); Platelet Count 342 K/mm3 (142-424); Red Blood Count 4.19 M/mm3 (4.20-5.40); Red Cell Distribution Width 13.3 % (11.5-17.5); White Blood Count 9.1 K/mm3 (4.8-10.8)
[2024-12-01] MEDS: LACTATED RINGERS 1000ML 1,000 ML 999 ML IV (00:58)
[2024-12-01] MEDS: ONDANSETRON 4MG/2ML VIAL 4 MG IV (00:58)
[2024-12-01 01:04] LABS: Albumin Level 4.5 g/dl (3.5-5.0); Chloride 105 mmol/L (98-107); Potassium 3.6 mmoL/L (3.5-5.1); Sodium 137 mmol/L (136-145)
[2024-12-01 01:06] LABS: Blood Urea Nitrogen 10 mg/dl (7-17); Creatinine Clearance Estimated 118 mL/min (50-200); Estimated Glomerular Filt Rate 106 ml/min (>60); GFR (African American) 128 ML/MIN (>60)
[2024-12-01 01:07] LABS: Alanine Aminotransferase 18 U/L (12-78); Albumin/Globulin Ratio 1.6 (1.1-1.8); Alkaline Phosphatase 63 U/L (38-126); Anion Gap 9.6 mEq/L (5-15); Aspartate Amino Transferase 25 U/L (14-36); Bilirubin,Total 0.4 mg/dl (0.2-1.3); Calcium 9.5 mg/dl (8.4-10.2); Carbon Dioxide 26 mmol/L (22.0-30.0); Globulin 2.9 g/dL (1.3-3.2); Glucose 112 mg/dl (74-100); Total Protein,Serum 7.4 g/dl (6.3-8.2)
[2024-12-01 01:08] LABS: Prothrombin Time 12.2 seconds (10.1-12.5)
[2024-12-01 01:15] LABS: Urine Pregnancy, HCG Qual. Negative (Negative)
--- NOTE | 2024-12-01 01:31 | PC.NURSE ---
Pt to CT scan
[2024-12-01 01:34] LABS: Troponin I < 0.01 ng/ml (0.00-0.034)
[2024-12-01] MEDS: ACETAMINOPHEN 500MG TAB 1000 MG PO (01:39)
[2024-12-01] MEDS: KETOROLAC 30MG/ML VIAL 15 MG IV (01:39)
--- NOTE | 2024-12-01 02:52 | PC.NURSE ---
pt asleep at this time. family at bedside voices no needs.
== END 2024-12-01 03:08 | disposition home or self-care (01) ==
PROVIDERS: Emergency Provider Emergency Medicine
DX: R55 Syncope and collapse (principal); R51.9 Headache, unspecified; R42 Dizziness and giddiness; R11.0 Nausea; W18.39XA Other fall on same level, initial encounter; Y93.89 Activity, other specified; Y92.008 Other place in unspecified non-institutional (private) residence as the place of occurrence of the external cause
CPT/HCPCS: 70450; 70486; 80053; 81025; 84484; 85025; 85610; 87636; 93005; 96361; 96374; 96375; 99284; J1885; J2405; J7120

== ENCOUNTER 2025-01-01 13:56 | Emergency (ER) | payer OTHER, SELFPAY ==
[2025-01-01 14:16] VITALS: BP 135/80; PULSE 87; RESP 18; TEMP 37; O2SAT 100; BMI 20.7
--- NOTE | 2025-01-01 14:25 | PC.NURSE ---
pt ambulatory to bathroom, then roomed in bed 8.
[2025-01-01 14:31] LABS: Microscopic, Urine URINE MICROSCOPIC (MICROSCOPIC)
[2025-01-01 14:34] LABS: Appearance,Urine CLEAR (Clear); Blood, Urine Negative (Negative); Color,Urine YELLOW (Yellow); Glucose,Urine (UA) Negative (Negative); Ketones,Urine Negative (Negative); Leukocyte Esterase,Urine TRACE (Negative); Nitrate,Urine Negative (Negative); Protein,Urine Negative (Negative); Specific Gravity, Urine >= 1.030 (1.005-1.030); Urobilinogen,Urine 0.2 EU/dl (0.2)
[2025-01-01 14:35] LABS: Urine Pregnancy, HCG Qual. Negative (Negative)
--- NOTE | 2025-01-01 14:45 | US_ITS ---
PROCEDURE INFORMATION: Exam: US Duplex Artery and Vein of the Abdominal and/or Reproductive Organs. Complete Ovaries Exam date and time: 01/01/2025 3:25 PM Age: 19 years old Clinical indication: Pelvic pain; Additional info: Llq abd pain TECHNIQUE: Imaging protocol: Real-time duplex ultrasound scan of the arterial and venous flow with color Doppler flow and spectral waveform analysis with image documentation. Duplex exam was performed to evaluate for torsion and other vascular conditions. Total images: 208 COMPARISON: US TRANSVAGINAL 09/08/2023 3:10 PM FINDINGS: Right ovary/adnexa: Blood flow is demonstrated to the right ovary. Left ovary/adnexa: Blood flow is demonstrated to the left ovary. IMPRESSION: No evidence of ovarian torsion. PROCEDURE INFORMATION: Exam: US Pelvis, Transvaginal, Non-Obstetric Exam date and time: 01/01/2025 3:25 PM Age: 19 years old Clinical indication: Pelvic pain; Additional info: Llq abd pain TECHNIQUE: Imaging protocol: Real-time transvaginal pelvic (non-obstetric) ultrasound with image documentation. Transvaginal imaging was used for better evaluation of the endometrium, adnexa, and/or cervix. COMPARISON: US TRANSVAGINAL 09/08/2023 3:10 PM FINDINGS: Uterus: Uterus measures 7.8 x 2.9 x 3.7 cm. Endometrium measures 7 mm. No uterine masses. Right ovary/adnexa: Right ovary measures 3.5 x 2.5 x 2.1 cm. Left ovary/adnexa: Left ovary measures 3.1 x 2.5 x 2.2 cm. Intraperitoneal space: No free fluid. Other findings: No adnexal masses IMPRESSION: 1. No adnexal masses or free fluid. 2. No uterine masses.
--- NOTE | 2025-01-01 14:45 | ED_ITS ---
<Statement entered by Corrine Whitley MD - 01/02/25 14:15> I was consulted by the CHARLES, and we discussed the complexity of the problems being addressed. I approved the treatment and management plan for this patient's care in the emergency department, thus performing a substantive portion of the medical decision making. Corrine Whitley MD, MISTI, FACEP Discharge Plan Disposition Patient Disposition: Home, Self-Care Condition: Good Prescriptions Prescriptions: New potassium chloride [Klor-Con 10] 10 mEq tablet extended release 10 meq PO BID 5 Days Qty: 10 0RF No Action escitalopram oxalate 10 mg tablet 10 mg PO DAILY Referrals Follow up/Referrals: Vicky Leyva MD [Primary Care Provider] - See instructions Activity Restrictions/Add. Instructions Additional Instructions/Restrictions: Please take your oral potassium as directed. Follow-up with your PCP within 7 days. Increase your fluid intake. Return to the ED for worsening of condition Clinical Impressions Clinical Impression: Acute hypokalemia Abdominal pain Qualifiers: Abdominal location: generalized Qualified Code(s): R10.84 - Generalized abdominal pain Instructions Patient Instructions: DI for Acute Abdominal Pain Print Language Print Language: [place]dean Discharge ED Provider: Corrine Whitley General Adult HPI General Chief complaint: Abdominal Pain Stated complaint: lower abd pain Time Seen by Provider: 01/01/25 14:23 Mode of Arrival: Ambulatory Source of Information: Patient and Significant Other Limitations: No Limitations Description of Symptoms (Recalled from ER Triage Doc. by RN): Patient presents to triage ambulatory with significant other. Patient endorses sharp pain around her belly button radiating to her left lower quadrant. States her last bowel movement was yesterday. Last menstrual period was one month ago. States she is having unprotected sex and is not on control. Denies nausea or vomiting. Denies fevers. Denies any urinary symptoms. History of Present Illness HPI narrative: 19-year-old female presents to the ED Related Data Home Medications ?Medication ?Instructions ?Recorded ?Confirmed escitalopram oxalate 10 mg tablet 10 mg PO DAILY 01/01/25 01/01/25 Previous Rx's ?Medication ?Instructions ?Recorded potassium chloride 10 mEq 10 meq PO BID 5 days #10 tabs 01/01/25 tablet,extended release (Klor-Con) Allergies Allergy/AdvReac Type Severity Reaction Status Date / Time azithromycin (AZITHROMYCIN) Allergy Mild Hives Verified 01/01/25 15:20 adapalene Allergy Unknown Hives Verified 01/01/25 15:20 [facility] Disclaimer: The information contained in this section may have been updated after the patient was seen, as this information can be updated by other users. Medical History Self mutilating behavior Gastroenteritis Left wrist injury Forearm contusion Fx metacarpal Hand injury Amenorrhea Closed fracture of 5th metacarpal Irregular menstrual cycle Fracture of hand Sprain of hand, right Seasonal allergies Medical clearance for incarceration Hand injury Migraine PCOS (polycystic ovarian syndrome) Surgical History No history of previous surgery Family History Mother Cancer unknown type Social History Smoking Status: Current every day smoker tobacco type: e-cigarettes alcohol intake: never substance use type: denies use current occupational status: other Travel in the last 8 weeks: None household members: family housing: house Have you lived/traveled outside US in past 30 days?: No Contact w/someone who lives/traveled outside US past 30 days?: No Exposure to someone with infectious disease in past 14 days?: No Do you have a fever (greater than 100.4 F or 38 C)?: No Have you tested positive for COVID-19: No Exposed to someone with COVID-19 in past 14 days?: No Do you have a sore throat?: No Do you have a cough?: No Do you have any weakness?: No Do you have any diarrhea?: No Are you experiencing any unusual bleeding?: No Do you have any muscle aches/pain?: No Do you have any abdominal pain?: No Are you experiencing loss of taste or smell?: No Other Medical History Have you received the Flu Vaccine for this season: No Have you received the Pneumonia Vaccine: No ROS Obtained: Yes Systems reviewed as appropriate & no additional complaints except as documented Physical Exam General General appearance: alert and in no apparent distress Head Head exam: atraumatic and normocephalic Eye Eye exam: Present normal appearance and PERRL ENT ENT exam: Present normal exam Neck Neck exam: Present normal inspection Chest Chest inspection: Present normal inspection and symmetric chest wall rise; Absent tenderness Respiratory Respiratory exam: Present normal lung sounds bilaterally Cardiovascular Cardiovascular exam: Present regular rate Abdominal Exam Abdominal exam: Present soft and normal bowel sounds; Absent tenderness Extremities Exam Extremities exam: Present normal inspection and full ROM Back Exam Back exam: Present normal inspection and full ROM Neurological Exam Neurological exam: Present alert and oriented X3 Psychiatric Psychiatric exam: Present normal affect and normal mood Skin Skin exam: Present warm and dry Medical Decision Making Medical Records Screening: Per USPSTF and CDC recommendations, given the prevalence of disease in our region, it is our hospital?s policy to screen for HIV and viral Hepatitis for all patients aged 18 and over and those with ongoing risk factors. Silvano Inquiry Pt receiving controlled substance: No Silvano was queried for this patient: No Vital Signs: 01/01/25 14:16 01/01/25 14:53 01/01/25 15:00 Temperature 98.6 F Temperature Source Oral Pulse Rate 77 70 Pulse Rate [Radial] 87 Respiratory Rate 18 Blood Pressure 108/73 L 116/75 Blood Pressure [R Arm] 135/80 Blood Pressure Mean [R Arm] 98 Blood Pressure Source [R Arm] Automatic Cuff 02 Sat by Pulse Oximetry 100 95 99 Oxygen Delivery Method Room Air Room Air Room Air Lab Data Lab Results 01/01/25 14:25: Urine Color Yellow, Urine Appearance Clear, Urine pH 6.0, Ur Specific [place] >= 1.030, Urine Protein Negative, Urine Glucose (UA) Negative, Urine Ketones Negative, Urine Blood Negative, Urine Nitrate Negative, Urine Bilirubin 1+ A, Urine Urobilinogen 0.2, Ur Leukocyte Esterase Trace, Urine RBC None, Urine WBC 5-10, Ur Squamous Epith Cells 3-5, Urine Bacteria Trace, Urine HCG, Qual Negative 01/01/25 14:30: WBC 6.7, RBC 4.35, Hgb 12.5, Hct 37.8, MCV 86.9, MCH 28.7, MCHC 33.1, RDW 13.2, Plt Count 395, MPV 9.3, Neut % (Auto) 60.6, Lymph % (Auto) 29.7, [place] % (Auto) 7.7, Eos % (Auto) 1.2, Baso % (Auto) 0.7, Neut # (Auto) 4.1, Lymph # (Auto) 2.0, [place] # (Auto) 0.5, Eos # (Auto) 0.1, Baso # (Auto) 0.1, Sodium 145, Potassium 3.2 L, Chloride 104, Carbon Dioxide 29, Anion Gap 15.2 H, BUN 7, Creatinine 0.80, Estimated Creat Clear 96, Estimated GFR 91, Est GFR ( Amer) 110, Glucose 71 L, Calcium 9.7, Total Bilirubin 0.7, AST 24, ALT 17, Alkaline Phosphatase 80, Total Protein 8.6 H, Albumin 5.3 H, Globulin 3.3 H, Albumin/Globulin Ratio 1.6, HCV Ab NASEEM w/Rflx PCR Qn Negative, HIV Ag/Ab Combo Qual Negative 01/01/25 14:30 01/01/25 14:30 Orders (Tests/Meds): ED MEDICATIONS Discontinued Medications Generic Name Dose Route Start Last Admin Trade Name Freq PRN Reason Stop Dose Admin Potassium Chloride 40 meq 01/01/25 15:37 01/01/25 15:51 Potassium Chloride 20meq Tab PO 01/01/25 15:38 40 meq ONCE ONE Administration ORDERS Category Date Time Status US transvaginal Stat Exams 01/01/25 14:45 Completed Complete Blood Count Auto Diff Stat Lab 01/01/25 14:30 Completed Comprehensive Metabolic Panel Stat Lab 01/01/25 14:30 Completed HIV Combo Stat Lab 01/01/25 14:30 Completed Hepatitis C Ab Qual. W/ RFX Stat Lab 01/01/25 14:30 Completed Urinalysis and Microscopic Stat Lab 01/01/25 14:25 Completed Urine , HCG Qual. Stat Lab 01/01/25 14:25 Completed Medical Decision Narrative: In summary, patient is a 19-year-old female no significant PMHx who presents to the ED for left lower quadrant abdominal pain that has been intermittent for the past 3 days. Patient is currently not having abdominal pain. Patient also states she may be . She has no additional medical complaints at this time. Upon initial exam, patient is alert, oriented and cooperative. Patient is hemodynamically stable. Physical exam remarkable for soft and nontender abdomen. Differential diagnosis includes ovarian torsion, ovarian cyst, appendicitis, infectious process, UTI, pyelonephritis, among others. Initial workup will be conducted with hematologic labs and ultrasound Initial workup reviewed by me. Hematologic labs remarkable for CBC unremarkable for any leukocytosis, stable H&H. CMP notable to have hypokalemia, potassium 3.2. Urinalysis unremarkable for any infectious process. test negative. Transvaginal ultrasound no adnexal masses or free fluid, no uterine masses. No ovarian torsion. Upon repeat evaluation, patient had an acceptable resolution of symptoms. They were ambulatory in the ED. Able to tolerate p.o. discussed with patient that she will need to follow-up with PCP within 7 days. Discussed that due to the hypokalemia we will administer 5 days of oral potassium. We discussed return precautions to the ED and patient verbalized understanding. Critical Care Critical Care Time Critical Care Time: No
[2025-01-01 14:51] LABS: Basophils # 0.1 K/mm3 (0-0.2); Basophils % 0.7 % (0.1-2.0); Eosinophils # 0.1 K/mm3 (0.0-0.4); Eosinophils % 1.2 % (0.1-12.0); Hematocrit 37.8 % (37.0-47.0); Hemoglobin 12.5 g/dL (12.2-16.2); Lymphocytes % 29.7 % (10-50); Mean Corpuscular HGB Conc 33.1 g/dL (31.8-35.4); Mean Corpuscular Hemoglobin 28.7 pg (27.0-31.2); Mean Corpuscular Volume 86.9 fl (81-99); Mean Platelet Volume 9.3 fl (7.4-10.4); Monocytes # 0.5 K/mm3 (0.1-1.0); Monocytes % 7.7 % (1.7-9.3); Neutrophils # 4.1 K/mm3 (1.8-7.8); Neutrophils % 60.6 % (37.0-80.0); Platelet Count 395 K/mm3 (142-424); Red Blood Count 4.35 M/mm3 (4.20-5.40); Red Cell Distribution Width 13.2 % (11.5-17.5); White Blood Count 6.7 K/mm3 (4.8-10.8)
[2025-01-01 14:53] VITALS: BP 108/73; PULSE 77; O2SAT 95
[2025-01-01 14:53] LABS: Bacteria,Urine Trace /lpf; Bilirubin,Urine 1+ (Negative)
[2025-01-01 14:54] LABS: Albumin Level 5.3 g/dl (3.5-5.0); Chloride 104 mmol/L (98-107); Potassium 3.2 mmoL/L (3.5-5.1); Sodium 145 mmol/L (136-145)
[2025-01-01 14:57] LABS: Alanine Aminotransferase 17 U/L (12-78); Albumin/Globulin Ratio 1.6 (1.1-1.8); Alkaline Phosphatase 80 U/L (38-126); Anion Gap 15.2 mEq/L (5-15); Aspartate Amino Transferase 24 U/L (14-36); Bilirubin,Total 0.7 mg/dl (0.2-1.3); Blood Urea Nitrogen 7 mg/dl (7-17); Calcium 9.7 mg/dl (8.4-10.2); Carbon Dioxide 29 mmol/L (22.0-30.0); Creatinine Clearance Estimated 96 mL/min (50-200); Estimated Glomerular Filt Rate 91 ml/min (>60); GFR (African American) 110 ML/MIN (>60); Globulin 3.3 g/dL (1.3-3.2); Glucose 71 mg/dl (74-100); Total Protein,Serum 8.6 g/dl (6.3-8.2)
[2025-01-01 15:00] VITALS: BP 116/75; PULSE 70; O2SAT 99
[2025-01-01 15:38] LABS: HIV Combo NEGATIVE (Negative)
[2025-01-01 15:46] LABS: Hepatitis C Ab Qual. W/ RFX NEGATIVE (Negative)
[2025-01-01] MEDS: POTASSIUM CHLORIDE 20MEQ TAB 40 MEQ PO (15:51)
[2025-01-01 17:09] VITALS: BP 116/75; PULSE 70; RESP 19; TEMP 37
== END 2025-01-01 17:10 | disposition home or self-care (01) ==
PROVIDERS: Emergency Provider Student in an Organized Health Care Education/Training Program; PCP Family Medicine
DX: E87.6 Hypokalemia (principal); R10.32 Left lower quadrant pain; F17.290 Nicotine dependence, other tobacco product, uncomplicated
CPT/HCPCS: 76830; 80053; 81001; 81025; 85025; 86803; 87389; 99283

== ENCOUNTER 2025-01-28 16:27 | Emergency (ER) | payer OTHER, SELFPAY ==
[2025-01-28 16:39] VITALS: BP 117/78; PULSE 74; RESP 18; TEMP 37.5; O2SAT 98; BMI 21.4
--- NOTE | 2025-01-28 16:47 | XR_ITS ---
PROCEDURE INFORMATION: Exam: XR Left Forearm Exam date and time: 01/28/2025 4:55 PM Age: 19 years old Clinical indication: Pain; Hand; Left; Additional info: Left hand injury TECHNIQUE: Imaging protocol: Radiologic exam of the left forearm. Views: 2 views. COMPARISON: CR XR FOREARM LT 2V 01/28/2025 4:55 PM FINDINGS: Bones/joints: Normal. Soft tissues: Normal. IMPRESSION: No acute findings.
--- NOTE | 2025-01-28 16:47 | XR_ITS ---
PROCEDURE INFORMATION: Exam: XR Left Hand Exam date and time: 01/28/2025 4:55 PM Age: 19 years old Clinical indication: Pain; Hand; Bilateral; Additional info: Left hand injury TECHNIQUE: Imaging protocol: Radiologic exam of the left hand. Views: 3 or more views. COMPARISON: CR Hand L 05/06/2019 4:32 PM FINDINGS: Bones/joints: Normal. Soft tissues: Normal. IMPRESSION: No acute findings.
--- NOTE | 2025-01-28 16:59 | ED_ITS ---
Discharge Plan Disposition Patient Disposition: Home, Self-Care Condition: Good Prescriptions Prescriptions: No Action escitalopram oxalate 10 mg tablet 10 mg PO DAILY potassium chloride [Klor-Con 10] 10 mEq tablet extended release 10 meq PO BID 5 Days Qty: 10 0RF Referrals Follow up/Referrals: Vicky Leyva MD [Primary Care Provider] - See instructions Activity Restrictions/Add. Instructions Additional Instructions/Restrictions: Call your family doctor to establish care for this visit to the emergency department and schedule follow-up within 48 hours to ensure improvement. If you have any worsening of your condition or any other concerning signs or symptoms, return to the emergency department or your primary care doctor for further fang luation. Take Tylenol 1000 mg every 6 hours (4 times daily) and ibuprofen 400 mg every 6 hours (4 times daily) as needed with food and water to prevent GI upset and kidney damage. Clinical Impressions Clinical Impression: Crushing injury of hand, left Print Language Print Language: Maltese Discharge ED Provider: Gerard Shelby General Adult HPI <Chauncey George - Last Filed: 01/28/25 17:00> General Chief complaint: Extremity Injury, Upper Stated complaint: AO 01/28/25 1600 left wrist injury Time Seen by Provider: 01/28/25 16:49 Mode of Arrival: Ambulatory Source of Information: Patient Description of Symptoms (Recalled from ER Triage Doc. by RN): Pt dropped a 20# dumbbell onto her left hand. Swelling and bruising noted. Pt is able to wiggle her fingers, but has limited ROM. sensation intact. Strong pulse, brisk cap refill Related Data Home Medications ?Medication ?Instructions ?Recorded ?Confirmed escitalopram oxalate 10 mg tablet 10 mg PO DAILY 01/01/25 01/01/25 Previous Rx's ?Medication ?Instructions ?Recorded potassium chloride 10 mEq 10 meq PO BID 5 days #10 tabs 01/01/25 tablet,extended release (Klor-Con) Allergies Allergy/AdvReac Type Severity Reaction Status Date / Time azithromycin (AZITHROMYCIN) Allergy Mild Hives Verified 01/28/25 16:58 adapalene Allergy Unknown Hives Verified 01/28/25 16:58 <Gerard Shelby MD - Last Filed: 01/28/25 17:46> History of Present Illness HPI narrative: Please note that above description of symptoms, in this electronic medical record under categorization of recalled from ER triage doctor by RN are reflective of an initial nursing assessment, however, is not reflective of my full history and physical exam that was personally taken and clarified. C onsequentially, this preceding description of symptoms, which may include the patient's categorized chief complaint in the EMR, do not reflect my personal clinical impression, and the ultimate description of history of present illness and patient stated complaints should be deferred to this section of the note. Unless stated otherwise or congruent with this section of the note, additional signs, symptoms, or incongruence should be interpreted as inaccurate with my clinical impression. [facility] <Chauncey Mcculloughkaren - Last Filed: 01/28/25 17:00> [facility] Disclaimer: The information contained in this section may have been updated after the patient was seen, as this information can be updated by other users. Medical History Self mutilating behavior Gastroenteritis Left wrist injury Forearm contusion Fx metacarpal Hand injury Amenorrhea Closed fracture of 5th metacarpal Irregular menstrual cycle Fracture of hand Sprain of hand, right Seasonal allergies Medical clearance for incarceration Hand injury Migraine PCOS (polycystic ovarian syndrome) Surgical History No history of previous surgery Family History Mother Cancer unknown type Social History Smoking Status: Current every day smoker tobacco type: e-cigarettes alcohol intake: never substance use type: denies use current occupational status: other Travel in the last 8 weeks: None household members: family housing: house Have you lived/traveled outside [place] in past 30 days?: No Contact w/someone who lives/traveled outside [place] past 30 days?: No Exposure to someone with infectious disease in past 14 days?: No Do you have a fever (greater than 100.4 F or 38 C)?: No Have you tested positive for COVID-19: No Exposed to someone with COVID-19 in past 14 days?: No Do you have a sore throat?: No Do you have a cough?: No Do you have any weakness?: No Do you have any diarrhea?: No Are you experiencing any unusual bleeding?: No Do you have any muscle aches/pain?: No Do you have any abdominal pain?: No Are you experiencing loss of taste or smell?: No Other Medical History Have you received the Flu Vaccine for this season: No Have you received the Pneumonia Vaccine: No <Gerard Shelby MD - Last Filed: 01/28/25 17:46> ROS Obtained: Yes All systems reviewed & no additional complaints except as documented Physical Exam <Gerard Shelby MD - Last Filed: 01/28/25 17:46> General General appearance: alert Head Head exam: atraumatic and normocephalic Eye Eye exam: Present normal appearance, PERRL and EOMI Neck Neck exam: Present normal inspection, full ROM and trachea midline Respiratory Respiratory exam: Absent respiratory distress, wheezes, stridor, accessory muscle use or prolonged expiratory phase Cardiovascular Cardiovascular exam: Present other (Pulses equal symmetric in upper and lower extremities) Abdominal Exam Abdominal exam: Present soft; Absent distention, tenderness or pulsatile mass Extremities Exam Extremities exam: Present other (Per MDM) Neurological Exam Neurological exam: Present alert, oriented X3 and CN II-XII intact; Absent motor sensory deficit Skin Skin exam: Present warm and dry; Absent diaphoresis or erythema Medical Decision Making <Chauncey George - Last Filed: 01/28/25 17:00> Medical Records Screening: Per USPSTF and CDC recommendations, given the prevalence of disease in our region, it is our hospital?s policy to screen for HIV and viral Hepatitis for all patients aged 18 and over and those with ongoing risk factors. Vital Signs: 01/28/25 16:39 01/28/25 17:32 Temperature 99.5 F 98.0 F Temperature Source Temporal Artery Scan Oral Pulse Rate 77 Pulse Rate [Right Radial] 74 Respiratory Rate 18 18 Blood Pressure 120/80 Blood Pressure [Right Arm] 117/78 Blood Pressure Mean [Right Arm] 91 Blood Pressure Source Automatic Cuff Blood Pressure Source [Right Arm] Automatic Cuff Blood Pressure Position Sitting Blood Pressure Position [Right Arm] Sitting 02 Sat by Pulse Oximetry 98 Oxygen Delivery Method Room Air Room Air Orders (Tests/Meds): ORDERS Category Date Time Status Forearm XR left 2 views [XR forearm LT 2V] Stat Exams 01/28/25 16:47 Taken XR hand LT min 3V Stat Exams 01/28/25 16:47 Taken <Gerard Shelby MD - Last Filed: 01/28/25 17:46> Medical Records Medical records reviewed: Yes I reviewed the patient's medical records. Silvano Inquiry Pt receiving controlled substance: No Silvano was queried for this patient: No Vital Signs: 01/28/25 16:39 01/28/25 17:32 Temperature 99.5 F 98.0 F Temperature Source Temporal Artery Scan Oral Pulse Rate 77 Pulse Rate [Right Radial] 74 Respiratory Rate 18 18 Blood Pressure 120/80 Blood Pressure [Right Arm] 117/78 Blood Pressure Mean [Right Arm] 91 Blood Pressure Source Automatic Cuff Blood Pressure Source [Right Arm] Automatic Cuff Blood Pressure Position Sitting Blood Pressure Position [Right Arm] Sitting 02 Sat by Pulse Oximetry 98 Oxygen Delivery Method Room Air Room Air Orders (Tests/Meds): ORDERS Category Date Time Status Forearm XR left 2 views [XR forearm LT 2V] Stat Exams 01/28/25 16:47 Taken XR hand LT min 3V Stat Exams 01/28/25 16:47 Taken Medical Decision Narrative: 19-year old female presenting with acute left hand pain. Patient states that she was reorganizing her shelf when a 20 pound dumbbell fell from approximately a foot and a half and landed on the dorsum of her left hand. Patient stated that her hand began to swell and bruise shortly after. Additionally she noted diminished sensation along the dorsum of her left middle phalanx and experience limited range of motion in her left wrist and the digits of her left hand. Patient notes that she has previous history of fracture in her left wrist, but she is unable to remember what happened to it. Patient denies numbness and paresthesias on the volar aspect of the hand, paralysis in the left hand and left digits. History was obtained via conversation with with the patient. On arrival, patient hemodynamically stable, alert, oriented x4, appropriate, GCS 15, moving all extremities spontaneously, pupils equal and reactive to light. Full physical exam performed and significant for soft tissue swelling on the dorsum of the left hand with faint ecchymosis. Additionally the patient notes paresthesias along the dorsum of the left middle digit. Physical examination was partially limited by pain however flexor and extension mechanisms appear to be intact, and AIN/PIN/ulnar nerve are intact as well. Differential includes sprain, strain, minor soft tissue injury, fracture, dislocation, among others. Patient placed on continuous cardiac monitoring and continuous pulse ox with initial blood pressure 117/78, heart rate 74, saturation 98 on room air. On independent interpretation of imaging, patient's x-rays are nonconcerning for any acute dislocation, fracture, or open lacerations, however, of note, there appears to be soft tissue swelling along the dorsum of the left hand. See radiology read for full review of final results. On reevaluation, patient resting comfortably. Given patient presentation, workup, history, this most likely represents minor MSK injury in the setting of crush injury. Because patient at baseline without signs or symptoms of clinical decompensation, deemed appropriate for discharge. Results were relayed to patient who voiced understanding and were agreeable to outpatient management and follow up. I discussed my clinical impression with patient and answered all questions. At this time, the evidence for any other entities in the differential is insufficient to warrant any further testing or ED observation. This was explained as well. Advisory was given that persistent or worsening symptoms require further evaluation. I confirmed the understanding of this discussion. [employer] disclaimer Much of this encounter note is an electronic flash welder spoken language to printed text. Electronic flash welder of the spoken language may permit errors. Although I have reviewed the note, some errors may still exist. Critical Care <Gerard Shelby MD - Last Filed: 01/28/25 17:46> Critical Care Time Critical Care Time: No
[2025-01-28 17:32] VITALS: BP 120/80; PULSE 77; RESP 18; TEMP 36.7; O2SAT 100
== END 2025-01-28 17:37 | disposition home or self-care (01) ==
PROVIDERS: Emergency Provider Emergency Medicine; PCP Family Medicine
DX: S67.22XA Crushing injury of left hand, initial encounter (principal); M79.642 Pain in left hand; F17.290 Nicotine dependence, other tobacco product, uncomplicated; W20.8XXA Other cause of strike by thrown, projected or falling object, initial encounter; Y93.89 Activity, other specified; Y92.9 Unspecified place or not applicable
CPT/HCPCS: 73090; 73130; 99283

== ENCOUNTER 2025-04-03 21:24 | Emergency (ER) | payer OTHER, SELFPAY ==
[2025-04-03 21:35] VITALS: BP 134/71; PULSE 87; RESP 16; TEMP 37.3; O2SAT 98; BMI 21.4
[2025-04-03 21:54] LABS: Basophils % 0.4 % (0.1-2.0); Eosinophils # 0.1 Kmm3 (0.0-0.4); Eosinophils % 1.3 % (0.1-12.0); Hematocrit 37.3 % (37.0-47.0); Hemoglobin 12.4 g/dL (12.2-16.2); Immature Granulocytes # 0.02 10^3uL; Immature Granulocytes % 0.2 %; Lymphocytes # 2.6 K/mm3 (0.7-4.5); Lymphocytes % 28.5 % (10-50); Mean Corpuscular HGB Conc 33.2 g/dL (31.8-35.4); Mean Corpuscular Hemoglobin 28.8 pg (27.0-31.2); Mean Corpuscular Volume 86.5 fl (81-99); Mean Platelet Volume 9.1 fl (7.4-10.4); Monocytes # 0.7 K/mm3 (0.1-1.0); Monocytes % 7.8 % (1.7-9.3); Neutrophils # 5.6 K/mm3 (1.8-7.8); Neutrophils % 61.8 % (37.0-80.0); Nucleated Red Blood Cells # 0 10^3/uL; Nucleated Red Blood Cells % 0 %; Platelet Count 403 K/mm3 (142-424); Red Blood Count 4.31 M/mm3 (4.20-5.40); Red Cell Distribution Width 13.3 % (11.5-17.5); Red Cell Distribution Width-SD 41.8 fL
[2025-04-03 21:57] LABS: Albumin Level 4.6 g/dl (3.5-5.0); Chloride 108 mmol/L (98-107); Potassium 3.8 mmoL/L (3.5-5.1); Sodium 140 mmol/L (136-145)
[2025-04-03 22:00] VITALS: BP 125/80; PULSE 88; O2SAT 100
[2025-04-03 22:00] LABS: Alanine Aminotransferase 17 U/L (12-78); Albumin/Globulin Ratio 1.5 (1.1-1.8); Alkaline Phosphatase 88 U/L (38-126); Anion Gap 9.8 mEq/L (5-15); Aspartate Amino Transferase 26 U/L (14-36); Bilirubin,Total 0.1 mg/dl (0.2-1.3); Blood Urea Nitrogen 9 mg/dl (7-17); Carbon Dioxide 26 mmol/L (22.0-30.0); Creatinine Clearance Estimated 113 mL/min (50-200); Estimated Glomerular Filt Rate 105 ml/min (>60); GFR (African American) 127 ML/MIN (>60); Globulin 3.1 g/dL (1.3-3.2); Lipase 60 U/L (23-300); Total Protein,Serum 7.7 g/dl (6.3-8.2)
[2025-04-03 22:01] LABS: Calcium 9.5 mg/dl (8.4-10.2); Glucose 83 mg/dl (74-100)
[2025-04-03] MEDS: KETOROLAC 30MG/ML VIAL 15 MG IV (22:06)
[2025-04-03 22:18] LABS: HCG,Quantitative < 2 mIU/ml (0-5.42)
[2025-04-03 22:30] VITALS: PULSE 84; O2SAT 99
[2025-04-03 22:52] LABS: Microscopic, Urine URINE MICROSCOPIC (MICROSCOPIC)
[2025-04-03 22:53] LABS: Appearance,Urine CLEAR (Clear); Bilirubin,Urine Negative (Negative); Blood, Urine 1+ (Negative); Color,Urine YELLOW (Yellow); Glucose,Urine (UA) Negative (Negative); Ketones,Urine Negative (Negative); Leukocyte Esterase,Urine 1+ (Negative); Nitrate,Urine Negative (Negative); Protein,Urine TRACE (Negative); Specific Gravity, Urine 1.015 (1.005-1.030); Urobilinogen,Urine 0.2 EU/dl (0.2)
--- NOTE | 2025-04-03 23:00 | ED_ITS ---
Discharge Plan Disposition Patient Disposition: Home, Self-Care Condition: Good Prescriptions Prescriptions: New cefdinir 300 mg capsule 300 mg PO BID 10 Days Qty: 20 0RF No Action escitalopram oxalate 10 mg tablet 10 mg PO DAILY potassium chloride [Klor-Con 10] 10 mEq tablet extended release 10 meq PO BID 5 Days Qty: 10 0RF Referrals Follow up/Referrals: Александр Otero MD [Staff Physician] - See instructions (Cholelithiasis) Annmarie Beckett [Primary Care Provider] - See instructions Activity Restrictions/Add. Instructions Additional Instructions/Restrictions: You were evaluated in the ER and are believed to be appropriate for discharge at this time. Take the prescribed antibiotics as directed, do not skip doses, do not stop taking them early. Make an appointment with your primary care doctor for reevaluation in a few days. Also call the general surgery office to make an appointment for outpatient follow-up of your gallstones. Return to the ER with new, worsening, or otherwise concerning symptoms Clinical Impressions Clinical Impression: Pyelonephritis, UTI (urinary tract infection), Cholelithiasis Instructions Patient Instructions: DI for Low Back Pain Print Language Print Language: Malian Discharge ED Provider: Gerard Shelby General Adult HPI <Gerard Shelby MD - Last Filed: 04/03/25 23:05> General Chief complaint: Back Pain/Injury Stated complaint: lower back pain Time Seen by Provider: 04/03/25 21:37 Mode of Arrival: Ambulatory Source of Information: Patient Description of Symptoms (Recalled from ER Triage Doc. by RN): R sided back pain Pt presents to the ED with c/o R sided back pain X day. Pt denies injury or urinary symptoms. History of Present Illness HPI narrative: Please note that above description of symptoms, in this electronic medical record under categorization of recalled from ER triage doctor by RN are reflective of an initial nursing assessment, however, is not reflective of my full history and physical exam that was personally taken and clarified. Consequentially, this preceding description of symptoms, which may include the patient's categorized chief complaint in the EMR, do not reflect my personal clinical impression, and the ultimate description of history of present illness and patient stated complaints should be deferred to this section of the note. Unless stated otherwise or congruent with this section of the note, additional signs, symptoms, or incongruence should be interpreted as inaccurate with my clinical impression. Related Data Home Medications ?Medication ?Instructions ?Recorded ?Confirmed escitalopram oxalate 10 mg tablet 10 mg PO DAILY 01/01/25 01/01/25 Previous Rx's ?Medication ?Instructions ?Recorded potassium chloride 10 mEq 10 meq PO BID 5 days #10 tabs 01/01/25 tablet,extended release (Klor-Con) cefdinir 300 mg capsule 300 mg PO BID 10 days #20 caps 04/04/25 Allergies Allergy/AdvReac Type Severity Reaction Status Date / Time azithromycin (AZITHROMYCIN) Allergy Mild Hives Verified 01/28/25 16:58 adapalene Allergy Unknown Hives Verified 01/28/25 16:58 [facility] <Gerard Shelby MD - Last Filed: 04/03/25 23:05> [facility] Disclaimer: The information contained in this section may have been updated after the patient was seen, as this information can be updated by other users. Medical History Self mutilating behavior Gastroenteritis Left wrist injury Forearm contusion Fx metacarpal Hand injury Amenorrhea Closed fracture of 5th metacarpal Irregular menstrual cycle Fracture of hand Sprain of hand, right Seasonal allergies Medical clearance for incarceration Hand injury Migraine PCOS (polycystic ovarian syndrome) Surgical History No history of previous surgery Family History Mother Cancer unknown type Social History Smoking Status: Current every day smoker tobacco type: e-cigarettes alcohol intake: never substance use type: denies use current occupational status: other Travel in the last 8 weeks?: None household members: family housing: house Have you lived/traveled outside [place] in past 30 days?: No Contact w/someone who lives/traveled outside US past 30 days?: No Exposure to someone with infectious disease in past 14 days?: No Do you have a fever (greater than 100.4 F or 38 C)?: No Have you tested positive for COVID-19?: No Exposed to someone with COVID-19 in past 14 days?: No Do you have a sore throat?: No Do you have a cough?: No Do you have any weakness?: No Do you have any diarrhea?: No Are you experiencing any unusual bleeding?: No Do you have any muscle aches/pain?: No Do you have any abdominal pain?: No Are you experiencing loss of taste or smell?: No Other Medical History Have you received the Flu Vaccine for this season: No Have you received the Pneumonia Vaccine: No <Gerard Shelby MD - Last Filed: 04/03/25 23:05> ROS Obtained: Yes All systems reviewed & no additional complaints except as documented Physical Exam <Gerard Shelby MD - Last Filed: 04/03/25 23:05> General General appearance: alert Head Head exam: atraumatic and normocephalic Eye Eye exam: Present normal appearance, PERRL and EOMI Neck Neck exam: Present normal inspection, full ROM and trachea midline Respiratory Respiratory exam: Absent respiratory distress, wheezes, stridor, accessory muscle use or prolonged expiratory phase Cardiovascular Cardiovascular exam: Present other (Pulses equal symmetric in upper and lower extremities) Abdominal Exam Abdominal exam: Present soft; Absent distention, tenderness or pulsatile mass Extremities Exam Extremities exam: Absent edema Back Exam Back exam: Present CVA tenderness (R); Absent CVA tenderness (L) Neurological Exam Neurological exam: Present alert, oriented X3 and CN II-XII intact; Absent motor sensory deficit Skin Skin exam: Present warm and dry; Absent diaphoresis or erythema Medical Decision Making <Gerard Shelby MD - Last Filed: 04/03/25 23:05> Medical Records Medical records reviewed: Yes I reviewed the patient's medical records. Screening: Per USPSTF and CDC recommendations, given the prevalence of disease in our region, it is our hospital?s policy to screen for HIV and viral Hepatitis for all patients aged 18 and over and those with ongoing risk factors. Silvano Inquiry Pt receiving controlled substance: No Silvano was queried for this patient: No Vital Signs: 04/03/25 21:35 04/03/25 22:00 04/03/25 22:30 Temperature 99.2 F Temperature Source Tympanic Pulse Rate 88 84 Pulse Rate [Right] 87 Respiratory Rate 16 Blood Pressure 125/80 Blood Pressure [Right Arm] 134/71 Blood Pressure Mean [Right Arm] 92 Blood Pressure Source Blood Pressure Source [Right Arm] Automatic Cuff Blood Pressure Position Blood Pressure Position [Right Arm] Sitting 02 Sat by Pulse Oximetry 98 100 99 Oxygen Delivery Method Room Air 04/04/25 00:39 Temperature 99.0 F Temperature Source Tympanic Pulse Rate 78 Pulse Rate [Right] Respiratory Rate 16 Blood Pressure 100/65 L Blood Pressure [Right Arm] Blood Pressure Mean [Right Arm] Blood Pressure Source Automatic Cuff Blood Pressure Source [Right Arm] Blood Pressure Position Sitting Blood Pressure Position [Right Arm] 02 Sat by Pulse Oximetry Oxygen Delivery Method Room Air Lab Data Lab Results 04/03/25 21:38: WBC 9.0, RBC 4.31, Hgb 12.4, Hct 37.3, MCV 86.5, MCH 28.8, MCHC 33.2, RDW 13.3, Plt Count 403, MPV 9.1, Neut % (Auto) 61.8, Lymph % (Auto) 28.5, [place] % (Auto) 7.8, Eos % (Auto) 1.3, Baso % (Auto) 0.4, Neut # (Auto) 5.6, Lymph # (Auto) 2.6, [place] # (Auto) 0.7, Eos # (Auto) 0.1, Baso # (Auto) 0.0, Sodium 140, Potassium 3.8, Chloride 108 H, Carbon Dioxide 26, Anion Gap 9.8, BUN 9, Creatinine 0.70, Estimated Creat Clear 113, Estimated GFR 105, Est GFR ( Amer) 127, Glucose 83, Calcium 9.5, Total Bilirubin 0.1 L, AST 26, ALT 17, Alkaline Phosphatase 88, Total Protein 7.7, Albumin 4.6, Globulin 3.1, Albumin/Globulin Ratio 1.5, Lipase 60, HCG, Quant < 2 04/03/25 22:45: Urine Color Yellow, Urine Appearance Clear, Urine pH 7.0, Ur Specific [place] 1.015, Urine Protein Trace, Urine Glucose (UA) Negative, Urine Ketones Negative, Urine Blood 1+ A, Urine Nitrate Negative, Urine Bilirubin Negative, Urine Urobilinogen 0.2, Ur Leukocyte Esterase 1+ A, Urine RBC 5-10, Urine WBC 10-20, Ur Squamous Epith Cells 3-5, Urine Bacteria 1+ 04/03/25 21:38 04/03/25 21:38 Orders (Tests/Meds): ED MEDICATIONS Discontinued Medications Generic Name Dose Route Start Last Admin Trade Name Freq PRN Reason Stop Dose Admin Cefdinir 300 mg 04/04/25 00:18 04/04/25 00:35 Cefdinir 300mg Capsule PO 04/04/25 00:19 300 mg ONCE ONE Administration Iopamidol 75 ml 04/03/25 23:17 04/03/25 23:17 Iopamidol-370 (76%);100ml Bottle IV 04/03/25 23:18 75 ml ONCE ONE Administration Ketorolac Tromethamine 15 mg 04/03/25 21:49 04/03/25 22:06 Ketorolac 30mg/Ml Vial IV 04/03/25 21:50 15 mg ONCE ONE Administration Sodium Chloride 10 ml 04/03/25 23:17 04/03/25 23:18 Sodium Chloride 0.9% 10ml Syr (Rad Only) IV 05/03/25 23:16 10 ml NEEDED PRN Administration Maintain IV Site ORDERS Category Date Time Status CT abdomen pelvis w con Stat Cat Scan 04/03/25 23:02 Completed POCUS Point of Care (ER Only) Stat Exams 04/03/25 21:49 Completed CBC w/Auto Diff [Complete Blood Count Auto Diff] Stat Lab 04/03/25 21:38 Completed CMP [Comprehensive Metabolic Panel] Stat Lab 04/03/25 21:38 Completed HCG,Quantitative Stat Lab 04/03/25 21:38 Completed Lipase Stat Lab 04/03/25 21:38 Completed UA [Urinalysis and Microscopic] Stat Lab 04/03/25 22:45 Completed Urine Culture Stat Micro 04/03/25 22:45 Received Medical Decision Narrative: 20-year-old female presenting with right flank pain. Has been going on for couple of days, no injury. It is sharp, stabbing, does not radiate. Not associated with nausea, vomiting, diaphoresis, urinary symptoms, fevers or chills. No abdominal tenderness. Has never had anything like this in the past. Has not injured her back. Came in for further evaluation. She states that she has been using heating pads and hot baths both of which make it better, but nothing in particular makes it worse. History obtained with patient. On arrival, very clinically well. Neurologically intact. Pulses equal and symmetric. Abdomen is soft, nontender, nondistended. She does have tenderness overlying her flank. No outward signs of abnormality. Differential includes PUD, gastritis, enteritis, gastroenteritis, pancreatitis, SBO, colitis, diverticulitis, nephrolithiasis, UTI, , cholecystitis, choledocholithiasis, appendicitis, hepatitis, less likely torsion, aortic pathology, mesenteric ischemia among others. Patient was given Toradol and fluids. Independent interpretation of patient's workup demonstrates nonactionable CBC or chemistry. LFTs normal. Bedside [id number] sign was performed, patient has numerous gallstones, but no obvious evidence of inflammation. Lipase and hCG negative, urinalysis with some blood. Because of this, CT of the abdomen and pelvis was ordered. On reevaluation, patient states she is completely asymptomatic after Toradol. Prior to CT imaging, care handed off to oncoming physician. Tableau Developer disclaimer Much of this encounter note is an electronic operations management trainee spoken language to printed text. Electronic operations management trainee of the spoken language may permit errors. Although I have reviewed the note, some errors may still exist. <Earnestine Peters MD - Last Filed: 04/04/25 02:26> Vital Signs: 04/03/25 21:35 04/03/25 22:00 04/03/25 22:30 Temperature 99.2 F Temperature Source Tympanic Pulse Rate 88 84 Pulse Rate [Right] 87 Respiratory Rate 16 Blood Pressure 125/80 Blood Pressure [Right Arm] 134/71 Blood Pressure Mean [Right Arm] 92 Blood Pressure Source Blood Pressure Source [Right Arm] Automatic Cuff Blood Pressure Position Blood Pressure Position [Right Arm] Sitting 02 Sat by Pulse Oximetry 98 100 99 Oxygen Delivery Method Room Air 04/04/25 00:39 Temperature 99.0 F Temperature Source Tympanic Pulse Rate 78 Pulse Rate [Right] Respiratory Rate 16 Blood Pressure 100/65 L Blood Pressure [Right Arm] Blood Pressure Mean [Right Arm] Blood Pressure Source Automatic Cuff Blood Pressure Source [Right Arm] Blood Pressure Position Sitting Blood Pressure Position [Right Arm] 02 Sat by Pulse Oximetry Oxygen Delivery Method Room Air Lab Data Lab Results 04/03/25 21:38: WBC 9.0, RBC 4.31, Hgb 12.4, Hct 37.3, MCV 86.5, MCH 28.8, MCHC 33.2, RDW 13.3, Plt Count 403, MPV 9.1, Neut % (Auto) 61.8, Lymph % (Auto) 28.5, [place] % (Auto) 7.8, Eos % (Auto) 1.3, Baso % (Auto) 0.4, Neut # (Auto) 5.6, Lymph # (Auto) 2.6, [place] # (Auto) 0.7, Eos # (Auto) 0.1, Baso # (Auto) 0.0, Sodium 140, Potassium 3.8, Chloride 108 H, Carbon Dioxide 26, Anion Gap 9.8, BUN 9, Creatinine 0.70, Estimated Creat Clear 113, Estimated GFR 105, Est GFR ( Amer) 127, Glucose 83, Calcium 9.5, Total Bilirubin 0.1 L, AST 26, ALT 17, Alkaline Phosphatase 88, Total Protein 7.7, Albumin 4.6, Globulin 3.1, Albumin/Globulin Ratio 1.5, Lipase 60, HCG, Quant < 2 04/03/25 22:45: Urine Color Yellow, Urine Appearance Clear, Urine pH 7.0, Ur Specific [place] 1.015, Urine Protein Trace, Urine Glucose (UA) Negative, Urine Ketones Negative, Urine Blood 1+ A, Urine Nitrate Negative, Urine Bilirubin Negative, Urine Urobilinogen 0.2, Ur Leukocyte Esterase 1+ A, Urine RBC 5-10, Urine WBC 10-20, Ur Squamous Epith Cells 3-5, Urine Bacteria 1+ Orders (Tests/Meds): ED MEDICATIONS Discontinued Medications Generic Name Dose Route Start Last Admin Trade Name Freq PRN Reason Stop Dose Admin Cefdinir 300 mg 04/04/25 00:18 04/04/25 00:35 Cefdinir 300mg Capsule PO 04/04/25 00:19 300 mg ONCE ONE Administration Iopamidol 75 ml 04/03/25 23:17 04/03/25 23:17 Iopamidol-370 (76%);100ml Bottle IV 04/03/25 23:18 75 ml ONCE ONE Administration Ketorolac Tromethamine 15 mg 04/03/25 21:49 04/03/25 22:06 Ketorolac 30mg/Ml Vial IV 04/03/25 21:50 15 mg ONCE ONE Administration Sodium Chloride 10 ml 04/03/25 23:17 04/03/25 23:18 Sodium Chloride 0.9% 10ml Syr (Rad Only) IV 05/03/25 23:16 10 ml NEEDED PRN Administration Maintain IV Site ORDERS Category Date Time Status CT abdomen pelvis w con Stat Cat Scan 04/03/25 23:02 Completed POCUS Point of Care (ER Only) Stat Exams 04/03/25 21:49 Completed CBC w/Auto Diff [Complete Blood Count Auto Diff] Stat Lab 04/03/25 21:38 Completed CMP [Comprehensive Metabolic Panel] Stat Lab 04/03/25 21:38 Completed HCG,Quantitative Stat Lab 04/03/25 21:38 Completed Lipase Stat Lab 04/03/25 21:38 Completed UA [Urinalysis and Microscopic] Stat Lab 04/03/25 22:45 Completed Urine Culture Stat Micro 04/03/25 22:45 Received Medical Decision Narrative: 20-year-old female presenting with right flank pain. Has been going on for couple of days, no injury. It is sharp, stabbing, does not radiate. Not associated with nausea, vomiting, diaphoresis, urinary symptoms, fevers or chills. No abdominal tenderness. Has never had anything like this in the past. Has not injured her back. Came in for further evaluation. She states that she has been using heating pads and hot baths both of which make it better, but nothing in particular makes it worse. History obtained with patient. On arrival, very clinically well. Neurologically intact. Pulses equal and symmetric. Abdomen is soft, nontender, nondistended. She does have tenderness overlying her flank. No outward signs of abnormality. Differential includes PUD, gastritis, enteritis, gastroenteritis, pancreatitis, SBO, colitis, diverticulitis, nephrolithiasis, UTI, , cholecystitis, choledocholithiasis, appendicitis, hepatitis, less likely torsion, aortic pathology, mesenteric ischemia among others. Patient was given Toradol and fluids. Independent interpretation of patient's workup demonstrates nonactionable CBC or chemistry. LFTs normal. Bedside [id number] sign was performed, patient has numerous gallstones, but no obvious evidence of inflammation. Lipase and hCG negative, urinalysis with some blood. Because of this, CT of the abdomen and pelvis was ordered. On reevaluation, patient states she is completely asymptomatic after Toradol. Prior to CT imaging, care handed off to oncoming physician. Tableau Developer disclaimer Much of this encounter note is an electronic operations management trainee spoken language to printed text. Electronic operations management trainee of the spoken language may permit errors. Although I have reviewed the note, some errors may still exist. Peters: Upon my assumption of care patient is stable, resting comfortably, I agree with the assessment and plan from Dr. Shelby. I reviewed labs which demonstrate likely early findings of UTI. CT imaging personally interpreted does not demonstrate acute intra-abdominal pathology though there is evidence of cystitis. See radiology read for final interpretation. Patient does have a small right adnexal cyst but at only 2.1 cm I do not believe this is causing the patient's pain and is very low risk for causing torsion. Patient also does not have pain in this region, her pain is much more superior and posterior. I also would not expect that ovarian torsion pain would be completely alleviated by Toradol. I do not believe she requires emergent ultrasound. On reassessment patient continues to rest comfortably and is asymptomatic. She received a dose of cefdinir in the ER for treatment of UTI and possible early pyelonephritis. Prescription was sent to her pharmacy of choice. Patient was given instructions on symptomatic management, antibiotic use, follow up instructions, and return precautions for the emergency department. Patient indicated understanding and was discharged in stable condition. Procedures <Gerard Shelby MD - Last Filed: 04/03/25 23:05> Limited Ultrasound Indication:: Limited RUQ ultrasound Indication: Flank pain Identified structures: -Gallbladder -Gallbladder wall -Common bile duct -Liver Findings: Sonographic Quintanilla sign: Absent Gallstones: Present Sludge: Absent Pericholecystic fluid: Absent Maximal GB wall thickness (mm) (normal is </= 3mm): Normal Common bile duct width (mm) (normal is </= 6mm): Normal Gallbladder width (cm) (normal is < 4cm): Normal Gallbladder length (cm) (normal is < 10cm): Normal Impression: Cholelithiasis without secondary findings of cholecystitis Images were saved to permanent archive The study was technically adequate CPT 38193-15 This study was performed by me, and I personally interpreted all images/videos. Based on my clinical judgement, these images were adequate and did not necessitate further imaging. Critical Care <Gerard Shelby MD - Last Filed: 04/03/25 23:05> Critical Care Time Critical Care Time: No
--- NOTE | 2025-04-03 23:02 | CT_ITS ---
PROCEDURE INFORMATION: Exam: CT Abdomen And Pelvis With Contrast Exam date and time: 04/03/2025 11:10 PM Age: 20 years old Clinical indication: Abdominal pain; Flank; Right; Additional info: R flank pain TECHNIQUE: Imaging protocol: Computed tomography of the abdomen and pelvis with contrast. Radiation optimization: All CT scans at this facility use at least one of these dose optimization techniques: automated exposure control; mA and/or kV adjustment per patient size (includes targeted exams where dose is matched to clinical indication); or iterative reconstruction. Contrast material: ISOVUE; Contrast volume: 75 ml; Contrast route: IV; COMPARISON: US TRANSVAGINAL 01/01/2025 3:25 PM FINDINGS: Liver: Tiny cyst is seen in the surface of the right liver lobe. Gallbladder and biliary ducts: Normal. No calcified stones. No ductal dilation. Pancreas: Normal. No ductal dilation. Spleen: Normal. No splenomegaly. Adrenal glands: Normal. No mass. Kidneys and ureters: No hydronephrosis Stomach and bowel: Unremarkable. No obstruction. No mucosal thickening. Appendix: Normal appendix Intraperitoneal space: Unremarkable. No free air. No significant fluid collection. Vasculature: Unremarkable. No abdominal aortic aneurysm. Lymph nodes: Unremarkable. No enlarged lymph nodes. Urinary bladder: Diffuse thickening of the urinary bladder with increased enhancement, but relative decompression Reproductive: Right adnexal cyst measures 21 mm Bones/joints: Unremarkable. No acute fracture. Soft tissues: Unremarkable. IMPRESSION: 1. Right adnexal cyst measures up to 21 mm 2. Normal appendix 3. Thickened urinary bladder without hydronephrosis. Advise urinalysis
[2025-04-03 23:07] LABS: Bacteria,Urine 1+ /lpf
[2025-04-03] MEDS: IOPAMIDOL-370 (76%);100ML BOTTLE 75 ML IV (23:17)
[2025-04-03] MEDS: SODIUM CHLORIDE 0.9% 10ML SYR (RAD ONLY) 10 ML IV (23:18)
[2025-04-04] MEDS: CEFDINIR 300MG CAPSULE 300 MG PO (00:35)
[2025-04-04 00:39] VITALS: BP 100/65; PULSE 78; RESP 16; TEMP 37.2; O2SAT 98
--- NOTE | 2025-04-06 18:00 | PC.NURSE ---
URINE CULTURE DISCUSSED WITH DR BRICE, NO NEW ORDERS
== END 2025-04-04 00:42 | disposition home or self-care (01) ==
PROVIDERS: Emergency Provider Emergency Medicine; PCP Family Medicine Sports Medicine
DX: N10 Acute pyelonephritis (principal); N39.0 Urinary tract infection, site not specified; K80.20 Calculus of gallbladder without cholecystitis without obstruction; M54.59 Other low back pain; F17.290 Nicotine dependence, other tobacco product, uncomplicated
CPT/HCPCS: 74177; 80053; 81001; 83690; 84702; 85025; 87086; 87088; 87186; 96374; 99285; J1885; Q9967

== ENCOUNTER 2025-04-05 18:41 | Emergency (ER) | payer OTHER, SELFPAY ==
--- NOTE | 2025-04-05 19:30 | ED_ITS ---
<Statement entered by Jose Verdugo MD - 04/06/25 01:10> I was consulted by the CHARLES, and we discussed the complexity of problems being addressed. I approved the treatment and management plan for this patient's care in the emergency department, thus performing a substantial portion of the medical decision making. Jose Verdugo MD Discharge Plan Disposition Patient Disposition: Home, Self-Care Condition: Good Prescriptions Prescriptions: New sulfamethoxazole-trimethoprim [Bactrim DS] 800-160 mg tablet 1 tab PO BID 10 Days Qty: 20 0RF ondansetron 4 mg tablet,disintegrating 4 mg PO QID PRN (Reason: nausea and vomiting) Qty: 10 0RF No Action escitalopram oxalate 10 mg tablet 10 mg PO DAILY potassium chloride [Klor-Con 10] 10 mEq tablet extended release 10 meq PO BID 5 Days Qty: 10 0RF cefdinir 300 mg capsule 300 mg PO BID 10 Days Qty: 20 0RF Referrals Follow up/Referrals: Provider,Referral, [Primary Care Provider] - See instructions Activity Restrictions/Add. Instructions Additional Instructions/Restrictions: I have sent in Zofran along with a new antibiotic to your pharmacy. Please take your antibiotic till it is gone. Please follow-up with your PCP within 48 hours for recheck. If you have any persistent new or worsening signs or symptoms return to the ER as needed. Clinical Impressions Clinical Impression: Pyelonephritis Stand Alone Forms Stand Alone Forms: Work/School Release Instructions Patient Instructions: DI for Kidney Infection Print Language Print Language: Irish Discharge ED Provider: Jose Verdugo General Adult HPI General Chief complaint: Abdominal Pain Stated complaint: Possible Gal Stones Time Seen by Provider: 04/05/25 19:30 History of Present Illness HPI narrative: Patient presents for evaluation of right flank pain. Patient was seen 2 days ago and diagnosed with gallstones but also urinary tract infection. Patient was prescribed cefdinir but has been unable to take any of the medications due to vomiting. The cefdinir is made her nauseated and she has vomited all MOELLER. She denies any fever chills hemoptysis hematochezia melena vomiting or diarrhea. She is able to eat and drink and otherwise has no symptoms except when taking the antibiotic. Related Data Home Medications ?Medication ?Instructions ?Recorded ?Confirmed escitalopram oxalate 10 mg tablet 10 mg PO DAILY 01/01/25 01/01/25 Previous Rx's ?Medication ?Instructions ?Recorded potassium chloride 10 mEq 10 meq PO BID 5 days #10 tabs 01/01/25 tablet,extended release (Klor-Con) cefdinir 300 mg capsule 300 mg PO BID 10 days #20 caps 04/04/25 ondansetron 4 mg disintegrating 4 mg PO QID PRN nausea and 04/05/25 tablet vomiting #10 tabs sulfamethoxazole 800 1 tab PO BID 10 days #20 tabs 04/05/25 mg-trimethoprim 160 mg tablet (Bactrim DS) Allergies Allergy/AdvReac Type Severity Reaction Status Date / Time azithromycin (AZITHROMYCIN) Allergy Mild Hives Verified 01/28/25 16:58 adapalene Allergy Unknown Hives Verified 01/28/25 16:58 [facility] Disclaimer: The information contained in this section may have been updated after the patient was seen, as this information can be updated by other users. Medical History Self mutilating behavior Gastroenteritis Left wrist injury Forearm contusion Fx metacarpal Hand injury Amenorrhea Closed fracture of 5th metacarpal Irregular menstrual cycle Fracture of hand Sprain of hand, right Seasonal allergies Medical clearance for incarceration Hand injury Migraine PCOS (polycystic ovarian syndrome) Surgical History No history of previous surgery Family History Mother Cancer unknown type Social History Smoking Status: Current every day smoker tobacco type: e-cigarettes alcohol intake: never substance use type: denies use current occupational status: other Travel in the last 8 weeks?: None household members: family housing: house Have you lived/traveled outside US in past 30 days?: No Contact w/someone who lives/traveled outside US past 30 days?: No Exposure to someone with infectious disease in past 14 days?: No Do you have a fever (greater than 100.4 F or 38 C)?: No Have you tested positive for COVID-19?: No Exposed to someone with COVID-19 in past 14 days?: No Do you have a sore throat?: No Do you have a cough?: No Do you have any weakness?: No Do you have any diarrhea?: No Are you experiencing any unusual bleeding?: No Do you have any muscle aches/pain?: No Do you have any abdominal pain?: No Are you experiencing loss of taste or smell?: No Other Medical History Have you received the Flu Vaccine for this season: No Have you received the Pneumonia Vaccine: No ROS Obtained: Yes Systems reviewed as appropriate & no additional complaints except as documented Physical Exam General General appearance: alert and in no apparent distress Respiratory Respiratory exam: Present normal lung sounds bilaterally Cardiovascular Cardiovascular exam: Present regular rate Neurological Exam Neurological exam: Present alert and oriented X3 Medical Decision Making Medical Records Medical records reviewed: Yes I reviewed the patient's medical records. Screening: Per USPSTF and CDC recommendations, given the prevalence of disease in our region, it is our hospital?s policy to screen for HIV and viral Hepatitis for all patients aged 18 and over and those with ongoing risk factors. Silvano Inquiry Pt receiving controlled substance: No Vital Signs: 04/05/25 19:38 Temperature 98.7 F Temperature Source Oral Pulse Rate [Radial] 122 H Respiratory Rate 18 Blood Pressure [Left Arm] 115/88 Blood Pressure Mean [Left Arm] 97 Blood Pressure Position [Left Arm] Sitting 02 Sat by Pulse Oximetry 97 Oxygen Delivery Method Room Air Lab Data Lab results reviewed: Yes I reviewed the patient's lab results. Lab Results 04/05/25 19:35: Urine Color Yellow, Urine Appearance Cloudy, Urine pH 6.0, Ur Specific Verdi 1.020, Urine Protein 1+ A, Urine Glucose (UA) Negative, Urine Ketones Negative, Urine Blood 1+ A, Urine Nitrate Negative, Urine Bilirubin Negative, Urine Urobilinogen 0.2, Ur Leukocyte Esterase 1+ A, Urine RBC 20-50, Urine WBC Tntc, Ur Squamous Epith Cells 5-10, Urine Bacteria 3+ 04/05/25 19:56: WBC 11.9 H D, RBC 4.48, Hgb 12.6, Hct 38.8, MCV 86.6, MCH 28.1, MCHC 32.5, RDW 13.3, Plt Count 403, MPV 9.0, Neut % (Auto) 75.6, Lymph % (Auto) 16.6, [place] % (Auto) 6.4, Eos % (Auto) 0.7, Baso % (Auto) 0.4, Neut # (Auto) 9.0 H, Lymph # (Auto) 2.0, [place] # (Auto) 0.8, Eos # (Auto) 0.1, Baso # (Auto) 0.1, Sodium 140, Potassium 4.0, Chloride 105, Carbon Dioxide 27, Anion Gap 12.0, BUN 6 L D, Creatinine 0.60, Estimated Creat Clear 132, Estimated GFR 125, Est GFR ( Amer) 151, Glucose 108 H, Lactate 1.0, Calcium 10.0, Total Bilirubin 0.4, AST 24, ALT 18, Alkaline Phosphatase 92, C-Reactive Protein 3.9, Total Protein 8.3 H, Albumin 5.1 H, Globulin 3.2, Albumin/Globulin Ratio 1.6, Lipase 34 04/05/25 19:56 04/05/25 19:56 Orders (Tests/Meds): ED MEDICATIONS Generic Name Dose Route Start Last Admin Trade Name Freq PRN Reason Stop Dose Admin Sodium Chloride 1,000 mls @ 999 mls/hr 04/05/25 19:45 04/05/25 20:05 Sod Chlor 0.9% 1000ml Bag IV 04/05/25 20:45 999 mls/hr .Q1H1M ONE Administration Discontinued Medications Generic Name Dose Route Start Last Admin Trade Name Freq PRN Reason Stop Dose Admin Ketorolac Tromethamine 30 mg 04/05/25 19:45 04/05/25 20:05 Ketorolac 30mg/Ml Vial IV 04/05/25 19:46 30 mg ONCE ONE Administration Ondansetron HCl 4 mg 04/05/25 19:45 04/05/25 20:05 Ondansetron 4mg/2ml Vial IV 04/05/25 19:46 4 mg ONCE ONE Administration Ondansetron HCl 4 mg 04/05/25 20:34 04/05/25 20:41 Ondansetron 4mg Odt SL 04/05/25 20:35 4 mg ONCE ONE Administration Trimethoprim/Sulfamethoxazole 1 each 04/05/25 20:34 04/05/25 20:42 Sulfa/Trimethoprim 1 Tablet PO 04/05/25 20:35 1 each ONCE ONE Administration ORDERS Category Date Time Status POCUS Point of Care (ER Only) Stat Exams 04/05/25 19:45 Ordered CBC w/Auto Diff [Complete Blood Count Auto Diff] Stat Lab 04/05/25 19:56 Completed CMP [Comprehensive Metabolic Panel] Stat Lab 04/05/25 19:56 Results CRP [C-Reactive Protein] Stat Lab 04/05/25 19:56 Results Lactic Acid Stat Lab 04/05/25 19:56 Completed Lipase Stat Lab 04/05/25 19:56 Results Procalcitonin Stat Lab 04/05/25 19:56 Results UA [Urinalysis and Microscopic] Stat Lab 04/05/25 19:35 Completed Urine , HCG Qual. Stat Lab 04/05/25 19:46 Ordered Urine Culture Stat Micro 04/05/25 19:35 Received Medical Decision Narrative: In summary patient is a 20-year-old female who presents to the emergency department for evaluation of right flank pain and vomiting her antibiotic. Patient is initially normotensive at 115/88 but tachycardic at 122 with sinus tachycardia the bedside monitor breathing 18 times minute satting at 97% on room air upon arrival, afebrile at 98.7. Physical exam is remarkable for no abdominal tenderness negative Quintanilla sign with normal bowel sounds however patient has CVA tenderness to percussion on the right negative on the left. No suprapubic tenderness.. Differential diagnosis includes pyelonephritis versus biliary colic versus complicated urinary tract infection etc. Initial workup will be conducted with hematologic labs and imaging was considered however patient has no red flags to suggest any systemic infection thus imaging deferred especially since she had previous imaging done at last visit. Initial interventions include Toradol and Zofran. Initial workup reviewed by me and her white count today is 11.9 which is up from 9 previously and absolute neutrophil count is 9 up from 5.6 the remainder of her hematologic labs are nonactionable and urinalysis shows 1+ protein 1+ blood 1+ leukocyte Estrace and microscopic exam shows 20-50 red cells too numerous to count white cells 5-10 epithelial cells and 3+ bacteria worsening urinary tract infection. POCUS did not reveal any gallbladder wall thickening or pericholecystic fluid ruling out gallbladder as a source of her discomfort.. Upon repeat evaluation patient reports significant improvement after Toradol and Zofran and is able to tolerate oral intake. She was able to keep down her first dose of Bactrim here.. Given this patient is appropriate discharged with 10 days of Bactrim for pyelonephritis follow-up closely within 48 hours with her PCP for recheck and strict return precautions. Critical Care Critical Care Time Critical Care Time: Yes Attestation: On 04/05/25, the high probability of a clinically significant, sudden or life threatening deterioration of the following system(s) required my full and direct attention, intervention and personal management. The time I documented below is in addition to time spent performing reported procedures but includes the following listed in this critical care notation. Total Time Total Critical Care Time: 30
[2025-04-05 19:38] VITALS: BP 115/88; PULSE 122; RESP 18; TEMP 37.1; O2SAT 97; BMI 21.4
[2025-04-05 19:51] LABS: Microscopic, Urine URINE MICROSCOPIC (MICROSCOPIC)
[2025-04-05 19:55] LABS: Appearance,Urine CLOUDY (Clear); Bilirubin,Urine Negative (Negative); Blood, Urine 1+ (Negative); Color,Urine YELLOW (Yellow); Glucose,Urine (UA) Negative (Negative); Ketones,Urine Negative (Negative); Leukocyte Esterase,Urine 1+ (Negative); Nitrate,Urine Negative (Negative); Protein,Urine 1+ (Negative); Urobilinogen,Urine 0.2 EU/dl (0.2)
[2025-04-05 20:04] LABS: Basophils # 0.1 K/mm3 (0-0.2); Basophils % 0.4 % (0.1-2.0); Eosinophils # 0.1 Kmm3 (0.0-0.4); Eosinophils % 0.7 % (0.1-12.0); Hematocrit 38.8 % (37.0-47.0); Hemoglobin 12.6 g/dL (12.2-16.2); Immature Granulocytes # 0.03 10^3uL; Immature Granulocytes % 0.3 %; Lymphocytes % 16.6 % (10-50); Mean Corpuscular HGB Conc 32.5 g/dL (31.8-35.4); Mean Corpuscular Hemoglobin 28.1 pg (27.0-31.2); Mean Corpuscular Volume 86.6 fl (81-99); Monocytes # 0.8 K/mm3 (0.1-1.0); Monocytes % 6.4 % (1.7-9.3); Neutrophils % 75.6 % (37.0-80.0); Nucleated Red Blood Cells # 0 10^3/uL; Nucleated Red Blood Cells % 0 %; Platelet Count 403 K/mm3 (142-424); Red Blood Count 4.48 M/mm3 (4.20-5.40); Red Cell Distribution Width 13.3 % (11.5-17.5); Red Cell Distribution Width-SD 41.6 fL; White Blood Count 11.9 K/mm3 (4.8-10.8)
[2025-04-05] MEDS: ONDANSETRON 4MG/2ML VIAL 4 MG IV (20:05)
[2025-04-05] MEDS: 0.9 % SODIUM CHLORIDE 1000ML 1,000 ML 999 ML IV (20:05)
[2025-04-05] MEDS: KETOROLAC 30MG/ML VIAL 30 MG IV (20:05)
[2025-04-05 20:09] LABS: Albumin Level 5.1 g/dl (3.5-5.0); Chloride 105 mmol/L (98-107); Sodium 140 mmol/L (136-145)
[2025-04-05 20:11] LABS: Blood Urea Nitrogen 6 mg/dl (7-17); Creatinine Clearance Estimated 132 mL/min (50-200); Estimated Glomerular Filt Rate 125 ml/min (>60); GFR (African American) 151 ML/MIN (>60)
[2025-04-05 20:12] LABS: Alanine Aminotransferase 18 U/L (12-78); Albumin/Globulin Ratio 1.6 (1.1-1.8); Alkaline Phosphatase 92 U/L (38-126); Aspartate Amino Transferase 24 U/L (14-36); Bilirubin,Total 0.4 mg/dl (0.2-1.3); Carbon Dioxide 27 mmol/L (22.0-30.0); Globulin 3.2 g/dL (1.3-3.2); Glucose 108 mg/dl (74-100); Lipase 34 U/L (23-300); Total Protein,Serum 8.3 g/dl (6.3-8.2)
[2025-04-05 20:17] LABS: C-Reactive Protein 3.9 mg/L (0-4)
[2025-04-05 20:29] LABS: Bacteria,Urine 3+ /lpf; RBC,Urine 20-50 #/hpf (0-3); WBC,Urine TNTC #/hpf (0-3)
[2025-04-05] MEDS: ONDANSETRON 4MG ODT 4 MG SL (20:41)
[2025-04-05] MEDS: SULFA/TRIMETHOPRIM 1 TABLET 1 EACH PO (20:42)
[2025-04-05 20:45] LABS: Procalcitonin 0.033 ng/mL (0.0-2.0)
[2025-04-05 20:48] VITALS: BP 103/77; PULSE 105; RESP 18; TEMP 36.6; O2SAT 100
--- NOTE | 2025-04-05 20:50 | PC.NURSE ---
IV discontinued. Catheter tip intact. Bleeding controlled.
[2025-04-05 21:16] LABS: Urine Pregnancy, HCG Qual. Negative (Negative)
== END 2025-04-05 20:51 | disposition home or self-care (01) ==
PROVIDERS: Physician Assistant; Emergency Provider Emergency Medicine
DX: N10 Acute pyelonephritis (principal); R10.31 Right lower quadrant pain; R00.0 Tachycardia, unspecified; B95.7 Other staphylococcus as the cause of diseases classified elsewhere
CPT/HCPCS: 80053; 81001; 81025; 83605; 83690; 84145; 85025; 86140; 87086; 87088; 87186; 96361; 96374; 96375; 99284; J1885; J2405; J7030; Q0162

== ENCOUNTER 2025-04-14 08:43 | Outpatient (CLI) | payer OTHER, SELFPAY ==
--- NOTE | 2025-04-14 09:00 | US_ITS ---
FINAL REPORT CLINICAL HISTORY: Right upper quad pain COMPARISON: None FINDINGS: Sonographic images of the right upper quadrant were obtained. The pancreas is partially obscured.The liver has an unremarkable appearance. Multiple gallstones are present in the gallbladder. The gallbladder wall is normal in size, measuring 2.7 mm. There is no evidence of biliary ductal dilatation.The common duct measures 4mm. Limited images of the right kidney are unremarkable. IMPRESSION: Multiple gallstones, without evidence of biliary ductal dilatation or gallbladder wall thickening. Reviewed, Interpreted and Dictated by Joseph Sanabria MD Transcribed by Brigid Harding Authenticated and [facility]
== END 2025-04-14 23:59 | disposition home or self-care (01) ==
LOC: RAD 08:43
PROVIDERS: PCP Surgery; Visit Provider Surgery
DX: K80.20 Calculus of gallbladder without cholecystitis without obstruction (principal)
CPT/HCPCS: 76705

== ENCOUNTER 2025-05-06 10:44 | Outpatient (CLI) | payer OTHER, SELFPAY ==
--- OUTSIDE RECORDS SUMMARY | 2025-05-06 10:47 | XMS_ITS | Clinical Summary ---
Author Organization [facility] Address [address] [place] [phone] Phone Care Team Providers Care Charter Bus Driver Name Role Phone Bill Dudley Primary Care Provider Allergies No known active allergies Medications loratadine (CLARITIN) 5 mg/5 mL Oral Solution Take 10 mg by mouth daily. Active Surgical History Surgery Date Site/Laterality Comments TYMPANOSTOMY TUBE PLACEMENT DENTAL SURGERY Social History Tobacco Use Types Packs/Day Years Used Date Smoking Tobacco: Never Comments No Sex and Gender Information Value Date Recorded Sex Assigned at Not on file Legal Sex Female 12:04 AM EDT Gender Identity Not on file Sexual Orientation Not on file Obstetrics History Last Filed Vital Signs Vital Sign Reading Time Taken Comments Blood Pressure 122/62 07/23/2014 12:21 AM EDT Pulse 115 07/23/2014 12:21 AM EDT Temperature 37.4 C (99.3 F) 07/23/2014 12:21 AM EDT Respiratory Rate 18 07/23/2014 12:21 AM EDT Oxygen Saturation 99% 07/23/2014 12:21 AM EDT Inhaled Oxygen Concentration - - Weight 45.9 kg (101 lb 2 oz) 07/23/2014 12:21 AM EDT Height 144.8 cm (4' 9 ) 07/23/2014 12:21 AM EDT Body Mass Index 21.88 07/23/2014 12:21 AM EDT Plan of Treatment Health Maintenance Due Date Last Done Comments Annual Wellness Exam 2006 HPV (1 - 3-dose series) 2018 Meningococcal B Vaccine (1 o f 2 - Standard) 2019 DTaP/TDaP/Td (1 - Tdap) 2022 Hepatitis B Vaccine (1 of 3 - 19+ 3-dose series) 2022 COVID-19 Vaccine (1 - 2023-2 5 season) 2024 Influenza Vaccine (Season Ended) 2025 Pneumococcal Vaccine 0-49 Aged Out No longer eligible based on patient's age to complete this topic Care Teams Charter Bus Driver Relationship Specialty Start Date End Date Bill Dudley [address] [place] [id number] PCP - General Family Medicine 07/23/14
[2025-05-06 10:54] VITALS: BMI 21.4
[2025-05-06 11:08] LABS: Basophils % 0.8 % (0.1-2.0); Eosinophils # 0.1 Kmm3 (0.0-0.4); Hematocrit 36.3 % (37.0-47.0); Immature Granulocytes # 0.01 10^3uL; Immature Granulocytes % 0.2 %; Lymphocytes # 1.8 K/mm3 (0.7-4.5); Lymphocytes % 35.5 % (10-50); Mean Corpuscular HGB Conc 33.1 g/dL (31.8-35.4); Mean Corpuscular Hemoglobin 28.6 pg (27.0-31.2); Mean Corpuscular Volume 86.4 fl (81-99); Mean Platelet Volume 9.1 fl (7.4-10.4); Monocytes # 0.5 K/mm3 (0.1-1.0); Monocytes % 9.3 % (1.7-9.3); Neutrophils # 2.6 K/mm3 (1.8-7.8); Neutrophils % 52.2 % (37.0-80.0); Nucleated Red Blood Cells # 0 10^3/uL; Nucleated Red Blood Cells % 0 %; Platelet Count 324 K/mm3 (142-424); Red Cell Distribution Width 13.5 % (11.5-17.5); Red Cell Distribution Width-SD 42.3 fL
[2025-05-06 11:13] LABS: Chloride 108 mmol/L (98-107)
[2025-05-06 11:14] LABS: Albumin Level 4.8 g/dl (3.5-5.0); Potassium 3.6 mmoL/L (3.5-5.1); Sodium 140 mmol/L (136-145)
[2025-05-06 11:16] LABS: Blood Urea Nitrogen 6 mg/dl (7-17); Creatinine Clearance Estimated 113 mL/min (50-200); Estimated Glomerular Filt Rate 105 ml/min (>60); GFR (African American) 127 ML/MIN (>60)
[2025-05-06 11:17] LABS: Alanine Aminotransferase 14 U/L (12-78); Albumin/Globulin Ratio 1.5 (1.1-1.8); Alkaline Phosphatase 73 U/L (38-126); Anion Gap 8.6 mEq/L (5-15); Aspartate Amino Transferase 22 U/L (14-36); Bilirubin,Total 0.7 mg/dl (0.2-1.3); Calcium 9.3 mg/dl (8.4-10.2); Carbon Dioxide 27 mmol/L (22.0-30.0); Globulin 3.1 g/dL (1.3-3.2); Glucose 93 mg/dl (74-100); Total Protein,Serum 7.9 g/dl (6.3-8.2)
[2025-05-06 11:34] LABS: HCG Qualitative, Serum Negative (Negative)
== END 2025-05-06 23:59 | disposition home or self-care (01) ==
LOC: PREOP 10:45
PROVIDERS: PCP Family Medicine; Visit Provider Surgery
DX: Z01.812 Encounter for preprocedural laboratory examination (principal); K80.20 Calculus of gallbladder without cholecystitis without obstruction
CPT/HCPCS: 80053; 84703; 85025

== ENCOUNTER 2025-05-16 06:00 | Day surgery (SDC) | payer OTHER, SELFPAY ==
[2025-05-06 12:48] VITALS: BMI 21.4
[2025-05-16] VITALS (12 sets, daily range): BP systolic 107–139; BP diastolic 60–77; PULSE 62–108; RESP 16–19; TEMP 36.2–36.4; O2SAT 95–99
[2025-05-16] MEDS: LACTATED RINGERS 1000ML 1,000 ML 25 ML IV (06:24)
[2025-05-16 06:30] LABS: Urine Pregnancy, HCG Qual. Negative (Negative)
[2025-05-16] MEDS: CEFAZOLIN SODIUM 2 GM in 0.9 % SODIUM CHLORIDE 100 ML IV (06:59)
[2025-05-16] MEDS: LIDOCAINE 1% 20ML MDV 20 ML (07:18)
[2025-05-16] MEDS: SODIUM CHLORIDE IRRIG SOLUTION 3,000 ML 25 ML IR (07:18)
[2025-05-16] MEDS: ROPIVACAINE 0.5% 30ML VIAL 150 MG (07:18)
--- NOTE | 2025-05-16 08:23 | EXP.OP.NOTE ---
Date of procedure: 05/16/25 Pre-op Diagnosis:: Symptomatic gallstones Post-op Diagnosis:: Same Procedure performed:: Laparoscopic cholecystectomy Surgeon:: Александр Otero MD PACKING MACHINE CAN FEEDER:: Serge Bains Anesthesia: GETMarcelo Estimated blood loss (mL): 20 Operative findings:: She had a distended gallbladder with multiple moderate-sized gallstones. There were some omental adhesions to the neck of the gallbladder. She had a tiny right inguinal hernia noted incidentally. Operative note:: Consent was obtained and patient was taken the operating room. She was given preoperative intravenous antibiotics. The operating room she was placed in a supine position. General anesthesia was induced via endotracheal tube. Abdomen was prepped and draped in the standard surgical fashion. Subumbilical skin incision was made while performing abdominal wall lift Veress needle was inserted. CO2 pneumoperitoneum was achieved to 15 mmHg. 11 mm optical trocar was inserted at the umbilicus. She was positioned in reverse Trendelenburg left side down. A couple of 5 mm trocars were inserted in the right upper abdomen. 10 mm trocar was inserted in the epigastrium. Liver was elevated and gallbladder is retracted anteriorly and superiorly over the dome of the liver. There were some omental adhesions to the gallbladder which were taken down mostly using blunt dissection with limited use of ultrasonic harmonic yoli. Dissection was carried out carefully ultimately identifying and isolating the cystic duct and the cystic artery and the critical view of safety. The cystic duct was isolated, multiply clipped, and sharply divided. Cystic artery was carefully coagulated with a's ultrasonic robotic yoli and divided. Gallbladder was dissected free from the liver in a retrograde fashion using ultrasonic harmonic yoli. Gallbladder was placed within an Endo Catch retrieval device and removed from the peritoneal cavity via the umbilical trocar site which required extension of the fascial incision and limited skin incision for delivery due to the multiple stones. Upon removal of the gallbladder there was noted to be incidentally a right inguinal hernia. Gallbladder fossa was inspected for hemostasis which was assured. Limited irrigation was performed. Trocars were removed and CO2 pneumoperitoneum was evacuated. Fascia at the umbilicus was closed with interrupted 0 Ethibond sutures. [id number] Ethibond was placed anteriorly in the epigastric site. Local anesthetic was infiltrated. Skin incisions were closed with 4-0 Monocryl in a subcuticular fashion. Steri-Strips and dressings were applied. Condition: stable Disposition: PACU Complications:: None immediately apparent
--- NOTE | 2025-05-16 08:46 | EXP.ANES.CKL ---
[facility] Disclaimer: The information contained in this section may have been updated after the patient was seen, as this information can be updated by other users. Medical History Self mutilating behavior Gastroenteritis Left wrist injury Forearm contusion Fx metacarpal Hand injury Amenorrhea Closed fracture of 5th metacarpal Irregular menstrual cycle Fracture of hand Sprain of hand, right Seasonal allergies Medical clearance for incarceration Hand injury Migraine PCOS (polycystic ovarian syndrome) Surgical History History of myringotomy Family History Mother Cancer Other Family history of diabetes mellitus Family history of heart disease Social History Smoking Status: Current every day smoker tobacco type: e-cigarettes alcohol intake: never substance use type: denies use current occupational status: unemployed Travel in the last 8 weeks?: None household members: family housing: house Have you lived/traveled outside US in past 30 days?: No Contact w/someone who lives/traveled outside US past 30 days?: No Exposure to someone with infectious disease in past 14 days?: No Do you have a fever (greater than 100.4 F or 38 C)?: No Have you tested positive for COVID-19?: No Exposed to someone with COVID-19 in past 14 days?: No Do you have a sore throat?: No Do you have a cough?: No Do you have any weakness?: No Do you have any diarrhea?: No Are you experiencing any unusual bleeding?: No Do you have any muscle aches/pain?: No Do you have any abdominal pain?: No Are you experiencing loss of taste or smell?: No [facility] Anesthesia Checklist Patient Identification Patient Identification: Arm Band and Family Structural Data Admitted From: Home Planned Operative Procedure/s: Lap Adrienne Consent for Planned Operative Procedure(s) Verified: Yes Verified Documents: Surgical Consent and History and Physical NPO Status Verified Time NPO: 00:00 Additional verifications Patient : No Anesthesia Reactions: No Hx Blood Transfusions: No Blood Transfusion Reaction: No Cephalosporin Allergy: No Previous Colonoscopy: No Airway Assessment Mallampati Score:: Class II C-Spine Mobility Assessed: Yes TMJ Mobility Assessed: Yes Dentition: Good Dentition Neurological Assessment Level of Consciousness: Awake, Alert, Appropriate and Follows Commands Hx Seizures: No Numbness or tingling in extremities: No Anesthesia Plan Anesthesia Risk discussed: Yes ASA Class: II Anesthesia Type: General Preoperative Comments Pre-Operative Comments: No previous anesthesia. Vapes.
--- NOTE | 2025-05-16 08:47 | EXP.ANES.I ---
[facility] Anesthesia Record Part I Anesthesia Record I Intake, IV Amount: 900 Hydration: Adequate Estimated blood loss (mL): 20 Urine output (mL): 0 Blood Pressure: 120/77 SaO2: 97 Pulse Rate: 108 Airway Patency: Patent Respiratory Rate: 19 Temperature: 97.3 F Patient is:: Drowsy and Stable Stable to PACU at:: 08:34
[2025-05-16] MEDS: HYDROMORPHONE 2MG/ML SYRINGE 0.5 MG IV ×3 (08:55→09:05)
[2025-05-16] MEDS: ONDANSETRON 4MG/2ML VIAL 4 MG IV (09:02)
[2025-05-16] MEDS: MEPERIDINE 50MG/ML 1ML SYRINGE 50 MG ×2 (09:10→09:15)
--- NOTE | 2025-05-16 10:31 | P.PNANES_ITS ---
[facility] Anesthesia Record Part II Anesthesia Record Part II Discharge Time: 09:14 Destination: Surgical Day Care (OP Surgery) PACU nurse assessment reviewed?: Yes Patient Condition:: Good Anesthesia Complications:: None Swallowing reflex intact?: Yes Airway Patency: Patent Cyanosis?: No Blood Pressure: 108/68 SaO2: 97 Respiratory Rate: 16 Pulse Rate: 80 Temperature: 97.3 F Mental Status: Alert & Oriented Pain level:: 8 Nausea and/or vomitting:: None Intake, IV Amount: 0 Hydration: Adequate
== END 2025-05-16 10:18 | disposition home or self-care (01) ==
PROVIDERS: PCP Family Medicine; Visit Provider Surgery
PROC: 0FT44ZZ Resection of Gallbladder, Percutaneous Endoscopic Approach (ICD-10-PCS; CPT 47562; principal; 2025-05-16 07:30)
DX: K80.10 Calculus of gallbladder with chronic cholecystitis without obstruction (principal); K40.90 Unilateral inguinal hernia, without obstruction or gangrene, not specified as recurrent; Z97.5 Presence of (intrauterine) contraceptive device; F17.290 Nicotine dependence, other tobacco product, uncomplicated; Z88.1 Allergy status to other antibiotic agents; Z88.8 Allergy status to other drugs, medicaments and biological substances
CPT/HCPCS: 47562; 81025; 96374; J0690; J1100; J1171; J2003; J2175; J2250; J2405; J2704; J2795; J3010; J7120

== ENCOUNTER 2025-07-26 12:11 | Outpatient (CLI) | payer OTHER, SELFPAY ==
--- OUTSIDE RECORDS SUMMARY | 2025-07-11 09:30 | XMS_ITS | Encounter Summary ---
Author Organization [facility] Address [address] [place] [address] Care Team Providers Care Coffee Shop Manager Name Role Phone Vicky Leyva DO Primary Care Provider [phone]- [phone] Reason for Referral * Behavorial Health/Psych (Routine) - Authorized Specialty Diagnoses / Procedures Referred By Contvivek t Referred To Contact Diagnoses Mood disorder Procedures CT OFFICE/OUTPATIENT NEW MODERATE MDM 45 MINUTES Vicky Leyva DO [address] [place] [address] Phone: tel: fax: [facility] [address] [place] [address] Phone: tel: fax: Referral ID Status Reason Start Date Expiration Date Visits Requested Visits Authorized [id number] Authorized Specialty Services Required 07/11/2025 10/10/2026 1 1 Scheduling Instructions Schedule counseling- [facility], if possible Reason for Visit * Reason Comments 6 mo f/u Wondering if she cou ld get Rx for Zofran Encounter Details Date Type Department Care Team ([facility] Contact Info) Description 07/11/2025 9:30 AM EDT Office Visit [facility] [address] [place] [phone] Vicky Leyva DO [address] [place] [address] Mood disorder (Primary Dx); Nausea Social History Tobacco Use Types Packs/Day Years Used Date Smoking Tobacco: Never Passive Smoke Exposure: Past Smokeless Tobacco: Never Alcohol Use Standard Drinks/Week Comments No 0 (1 standard drink = 0.6 oz pur e alcohol) PHQ-2 Answer Date Recorded Retired PHQ-9: Brief Depression Severity Measure Score 1 01/03/2023 PHQ-2 Answer Date Recorded Patient Health Questionnaire-2 Score 1 12/02/2024 Comments No Sex and Gender Information Value Date Recorded Sex Assigned at Not on file Legal Sex Female 12:04 PM EDT Gender Identity Not on file Sexual Orientation Not on file documented as of this encounter Last Filed Vital Signs Vital Sign Reading Time Taken Comments Blood Pressure 94/70 07/11/2025 9:23 AM EDT Pulse 76 07/11/2025 9:23 AM EDT Temperature 36.7 C (98 F) 07/11/2025 9:23 AM EDT Respiratory Rate 16 07/11/2025 9:23 AM EDT Oxygen Saturation 99% 07/11/2025 9:23 AM EDT Inhaled Oxygen Concentration - - Weight 58 kg (127 lb 12.8 oz) 07/11/2025 9:23 AM EDT Height 162.6 cm (5' 4 ) 07/11/2025 9:23 AM EDT Body Mass Index 21.94 07/11/2025 9:23 AM EDT documented in this encounter Patient Instructions * Attachments The following attachments cannot be sent through Care Everywhere. * Major Depressive Disorder Adult Subo-zm-Aqwy ([place]) documented in this encounter Progress Notes * Vicky Leyav DO - 07/11/2025 9:30 AM EDT Chief Complaint 6 mo f/u (Wondering if she could get Rx for Zofran ) Subjective Juan Jenkins presents to [facility] History of Present Illness The patient presents for a 6-month follow-up. The primary reason for this visit is to address issues with her current medication for anxiety and depression. She has been taking Lexapro (escitalopram) consistently but recently experienced a shiftin its effects, causing her to feel unusually angry. She recalls a similar situation with a previous antidepressant, which initially worked but eventually required a change. She is considering switching to a different type of depression medication and has expressed interest in resuming therapy, which she found beneficial in the past. She has been unemployed since last year after the closure of her workplace and now spends most of her time at home caring for her two stepchildren, aged 8 and 9. This has been a source of stress, as she feels overwhelmed by the responsibility and unable to express her feelings to her fianc??. She reports frequent nausea, which she suspects may be related to her nerves. She is not currently using any form of contraception and has been diagnosed with Polycystic Ovary Syndrome (PCOS) by her supervisor real estate office. Her last menstrual period was from 06/25/2025 to 06/29/2025. GYNECOLOGICAL HISTORY: - Last Menstrual Period: 06/25/2025 PAST SURGICAL HISTORY: She had her gallbladder removed approximately a month and a half ago. The following portions of the patient's history were reviewed and updated as appropriate: allergies, current medications, past family history, past medical history, past social history, past surgicalhistory, and problem list. Objective Physical Exam Vitals and nursing note reviewed. Pulmonary: Effort: Pulmonary effort is normal. No respiratory distress. Neurological: Mental Status: She is alert. Psychiatric: Mood and Affect: Mood normal. Behavior: Behavior normal. Physical Exam Result Review : Results Assessment and Plan Diagnoses and all orders for this visit: 1. Mood disorder (Primary) - lamoTRIgine (LaMICtal) 25 MG tablet; Take 1 tab po qd x 14 days, then increase to 2 tabs po qd Dispense: 60 tablet; Refill: 1 - Ambulatory Referral to Behavioral Health 2. Nausea - ondansetron ODT (ZOFRAN-ODT) 4 MG disintegrating tablet; Place 1 tablet on the tongue Every 8 (Eight) Hours As Needed for Nausea or Vomiting. Dispense: 20 tablet; Refill: 0 Assessment & Plan 1. Mood disorder: - Symptoms include increased irritability and anger, which were previously well- managed with escitalopram but have recently worsened. - Discussed the potential benefit of outside counseling and provided a referral to [facility]. Reviewed the possibility of insurance coverage for counseling services. - Prescribed lamotrigine 50 mg with instructions to take one tablet daily for the first two weeks, then increase to two tablets daily. Advised to discontinue if a rash develops and to notify the clinic. Refilled Zofran for nausea. Follow-up: A follow-up appointment is scheduled for 4 to 6 weeks, with the option for a telehealth visit. Follow Up Return in about 6 weeks (around 08/22/2025) for Recheck mood disorder, ok for telehealth . Patient or patient uniforms sales representative verbalized consent for the use of Ambient Listening during the visit with Vicky Leyva DO for chart documentation. 07/12/2025 11:38 EDT Patient was given instructions and counseling regarding her condition or for health maintenance advice. Please see specific information pulled into the AVS if appropriate. documented in this encounter Plan of Treatment Upcoming Encounters Date Type Department Care Team (Late st Contact Info) Description 08/25/2025 4:45 PM EDT Telemedicine [facility] [address] [place] [phone] Vicky Leyva DO [address] [place], [place] [address] Scheduled Referrals Name Type Priority Associated Diagnoses Order Schedule Ambulatory Referral to Behavioral Health Outpatient Referral Routine Mood disorder Ordered: 07/11/2025 documented as of this encounter Visit Diagnoses Diagnosis Mood disorder- Primary Unspecified episodic mood disorder Nausea Nausea alone documented in this encounter Care Teams Coffee Shop Manager Relationship Specialty Start Date End Date Vicky Leyva DO [address] [place] [address] PCP - General Family Medicine 09/04/18 documented as of this encounter
[2025-07-26 14:53] LABS: Coronavirus 19, PCR Not Detected (NotDetected); Influenza A, PCR Not Detected (NotDetected); Influenza B, PCR Not Detected (NotDetected)
--- OUTSIDE RECORDS SUMMARY | 2025-07-27 10:38 | XMS_ITS | Clinical Summary ---
Author Organization [facility] Address [address] [place] [phone] Phone Care Team Providers Care Toll Line Repairer Name Role Phone Bill Dudley Primary Care [...] COVID-19 Vaccine (1 - 2023-2 5 season) 2025 Influenza Vaccine (#1) 2025 Pneumococcal Vaccine 0-49 Aged Out No longer eligible based on patient's age to complete this topic Care Teams Toll Line Repairer Relationship Specialty Start Date End Date Bill Dudley [address] [place] [phone] PCP - General Family Medicine 07/23/14
--- OUTSIDE RECORDS SUMMARY | 2025-07-27 10:38 | XMS_ITS | Encounter Summary ---
Author Organization [facility] Address [address] [place] [address] Care Team Providers Care Skilled Laborer Name Role Phone Vicky Leyva Primary Care Provider [phone]- [phone] Encounter Details Date Type Department Care Team (Late st Contact Info) Description 02/10/2025 Results Follow-Up [facility] [address] [place] [phone] Jason Santiago, CAPRICE [address] [facility] [place] [address] Social History Tobacco Use Types Packs/Day Years [...] on file documented as of this encounter Progress Notes * Jason Santiago APRN - 02/10/2025 7:33 PM EDT Your cardiac heart monitor results have been reviewed. Your results are considered acceptable. No concerning heart arrhythmias were identified. (Results released to patient in Goalbookhart) documented in this encounter Plan of Treatment Upcoming Encounters Date Type Department Care Team (Late st Contact Info) Description 08/25/2025 4:45 PM EDT Telemedicine [facility] [address] [place] [address] Vicky Leyva DO [address] [place] [address] documented as of this encounter Visit Diagnoses Not on filedocumented in this encounter Care Teams Skilled Laborer Relationship Specialty Start Date End Date Vicky Leyva DO [address] [place] [address] PCP - General Family Medicine 09/04/18 documented as of this encounter
--- OUTSIDE RECORDS SUMMARY | 2025-07-27 10:38 | XMS_ITS | Clinical Summary ---
Author Organization [facility] Address [address] [place] [address] Care Team Providers Care Behavioral Intervention Specialist Name Role Phone Vicky Leyva Primary Care Provider Allergies Active Allergy Reactions Criticality Noted Date Comments Peanut-Containing Drug Products Swelling Low 08/17 Azithromycin Swelling,Rash Low 09/04/2018 Medications SUMAtriptan (IMITREX) 100 MG tabletIndications :Intractable migraine without aura and with status migrainosus Take one tablet at onset of headache. May repeat dose one time in 2 hours if headache not relieved. 10 tablet 5 12/02/19 25 Active Additional Information Patient not taking.Reported on 07/11/2025 lamoTRIgine (LaMICtal) 25 MG tabletIndications :Mood disorder Take 1 tab po qd x 14 days, then increase to 2 tabs po qd 60 tablet 1 07/11/20 25 Active ondansetron ODT (ZOFRAN-ODT) 4 MG disintegrating tabletIndications :Nausea Place 1 tablet on the tongue Every 8 (Eight) Hours As Needed for Nausea or Vomiting. 20 tablet 07/11/20 25 Active escitalopram (Lexapro) 10 MG tabletIndications :Moderate episode of recurrent major depressive disorder Take 1 tablet by mouth Daily. 90 tablet 1 12/02/19 25 025 Discontinue d(Patient Reported Not Taking) Active Problems Problem Noted Date Diagnosed Date PCOS (polycystic ovarian syndrome) 01/20/2024 Assessment & Plan (01/20/2024 2:33 PM EST): Diagnosis reviewed with patient. While her cycles have regulated, I imagine this is due to weight loss. We discussed the impact of PCOS and fertility, and the benefits of weight loss. Reviewed that a 5 pound modest weight loss increases fertility rates. There may also be a benefit to metformin. I am reassured that her FOB was able to father a child previously, she got this time (although miscarried), and has regular cycles. Counseled on menstrual cycle and fertile windows. Will begin using ovulation predictor kits and tracking her cycle. Electronic cigarette use 01/20/2024 Assessment & Plan (01/20/2024 2:31 PM EST): Jaleel Adams reports that she has never smoked cigarettes but does vape. She has never used smokeless tobacco.. I have educated her on the risk of diseases from using tobacco products such as cancer, COPD, heart disease, reproductive problems, and low weight. I advised her to quit and she is willing to quit. I spent 3 minutes counseling the patient. Moderate episode of recurrent major depressive d isorder 01/03/2023 Assessment & Plan (01/03/2023 9:55 AM EST): Patient's depression is single episode and is moderate without psychosis. Their depression is currently in partial remission and the condition is improving with treatment. This will be reassessed at the next regular appointment. F/U as described:patient was prescribed an antidepressant medicine. Intractable migraine without aura and with status migrainosus 01/03/2023 Assessment & Plan (01/03/2023 9:57 AM EST): Headaches are worsening. Medication changes per orders. We will long discussion regarding treatment options. Initially topiramate was considered but patient is sexually active and is not using any form of control. Furthermore she had already admitted to struggling to take medication on a daily basis. I felt the benefit of using topiramate was outweighed by the risk of potential teratogen density should she become . Plan will be as follows: 1. Stop Goody's headache powder 2. Elavil 10 mg qhs as prophylactic 3. Ibuprofen and Imitrex for abortive Encounters Date Type Department Care Team Description 07/11/2025 9:30 AM EDT Office Visit [facility] [address] [place] [phone] Vicky Leyva DO Mood disorder (Primary Dx); Nausea 07/11/2025 Travel from Last 3 Months Immunizations Immunization Administration Dates Next Due DTaP, Unspecified 04/21/2007, 4,2003,07/11/20 03,2003 Hep A, 2 Dose 12/17/2020,08/27/2018,02/04/2018 Hep B / HiB 03/22/2004,2003 Hep B, Adolescent or Pediatric 2003 Hib (PRP-OMP) 2003 Hpv9 06/07/2020,10/21/2019,07/06/2019 IPV 04/21/2007, 3,2003,05/09/20 03 MCV4 Unspecified 06/05/2015 MMR 04/21/2007,07/03/2004 Meningococcal B,(Bexsero) 10/21/2019,07/06/2019 Meningococcal MCV4P (Menactra) 07/06/2019,2014 PEDS-Pneumococcal Conjugate (PCV7) 07/03/2004,,2003 Tdap 07/23/2024,06/05/2015 Varicella 06/05/2015,03/22/2004 Family History Medical History Relation Name Comments No Known Problems Father Cancer Maternal Grandfather gilbert Diabetes Maternal Grandfather gilbert Heart attack Maternal Grandfather gilbert Hyperlipidemia Maternal Grandfather gilbert Hypertension Maternal Grandfather gilbert Cancer Maternal Grandmother No Known Problems Mother No Known Problems Sister Relation Name Status Comments Father Alive Maternal Grandfather gilbert Maternal Grandmother Mother Alive Paternal Grandfather Unknown Paternal Grandmother Unknown Sister Alive Social History Tobacco Use Types Packs/Day Years Used Date Smoking Tobacco: Never Passive Smoke Exposure: Past Smokeless Tobacco: Never Tobacco Cessation:Counseling Given: Yes Alcohol Use Standard Drinks/Week Comments No 0 [...] on file Sexual Orientation Not on file Last Filed Vital Signs Vital Sign Reading [...] Mass Index 21.94 07/11/2025 9:23 AM EDT Plan of Treatment Upcoming Encounters Date Type Department Care Team (Late st Contact Info) Description 08/25/2025 4:45 PM EDT Telemedicine [facility] [address] [place] [address] Vicky Leyva DO [address] [place] [address] Health Maintenance Due Date Last Done Comments ANNUAL PHYSICAL 09/03/2018 HEPATITIS C SCREENING 09/03/2018 Annual Gynecologic Pelvic an d Breast Exam 03/17/2025 03/16/2024 COVID-19 Vaccine (2 - 2024-2 6 season) 2025 02/03/2023 INFLUENZA VACCINE 08/17/2025 PAP SMEAR 03/16/2027 03/16/2024 TDAP/TD VACCINES (3 - Td or Tdap) 07/23/2034 07/23/2024, 06/05/2015 Pneumococcal Vaccine 0-49 Aged Out 2003, 2003, 2003 No longer eligible based on patient's age to complete this topic MENINGOCOCCAL VACCINE Completed 07/06/2019 , 06/05/2015, 06/05/2015 MENINGOCOCCAL B VACCINE Completed 10/21/20 19, 07/06/2019 HPV VACCINES Completed 06/07/2020, 10/21/2019, 07/06/2019 CHLAMYDIA SCREENING Discontinued 03/16/2024 Procedures Procedure Name Priority Date/Time Associated Diagnosis Comments SCANNED PATHOLOGY 05/16/2025 SCANNED - LABS 05/16/2025 SCANNED - LABS 05/06/2025 SCANNED - LABS 05/06/2025 LIQUID-BASED PAP SMEAR WITH HPV GENOTYPING IF ASCUS, [facility] ([facility]) Routine 03/16/2024 2:30 PM EDT Encounter for annual routine gynecological examination from Last 3 Months or Most Recently Relevant to Health Maintenance Results * SCANNED PATHOLOGY (05/16/2025) us Vicky Leyva DO PATHOLOGY/CYTOLOGY ORDERABL ES Final Result * LABS SCANNED (05/16/2025) Only the most recent of3 resultswithin the time period is included. us Vicky Gabrielser DO LAB BLOOD ORDERABLES Final Result * LIQUID-BASED PAP SMEAR WITH HPV GENOTYPING IF ASCUS (MINNIE,COR,MAD) (03/16/2024 2:30 PM EDT) Reference Lab Report [facility] [address] [place] [address] or [phone] Gordon Howe M.D., [place] PATIENT NAME LABORATORY [address] [id number] JALEEL [address] [id number] AGE SEX SSN CLIENT REF # [id number] 19 2005 F [id number] Ori BEAVER REQUESTING Tony [place] [address] CHENCHO KELLER DATE COLLECTED DATE RECEIVED DATE REPORTED 03/16/2024 03/16/2024 03/19/2024 ThinPrep Pap with Cytyc Imaging DIAGNOSIS: Negative for intraepithelial lesion or malignancy Multiple factors can influence accuracy of Pap tests; therefore, screening at regular intervals is necessary for early cancer detection. SPECIMEN ADEQUACY: SATISFACTORY FOR EVALUATION Transformation zone is present. Partially obscuring bacteria is present. SOURCE OF SPECIMEN: CERVICAL/ENDOCERVI LINNEA SLIDES: 1 CLINICAL HISTORY: Encounter for annual routine gynecological examination Chlamydia / Gonorrhea CHLAMYDIA TRACHOMATIS: Positive NEISSERIA GONORRHOEAE: Negative The Aptima Combo 2 assay is a target amplification nucleic acid probe test that utilizes target capture for the in vitro qualitative detection and differentiation of ribosomal RNA from Chlamydia trachomatis and Neisseria gonorrhoeae to aid in the diagnosis of chlamdial and gonococcal disease using the [place] system. Trichomonas TRICHOMONAS VAGINALIS: Negative The Aptima Trichomonas vaginalis assay is an in vitro qualitative nucleic acid amplification test for the detection of ribosomal RNA to aid in the diagnosis of trichomoniasis. VISCOSITY TESTER: WENDY COWAN (ASCP) CPT CODES: 28944, 40616, [id number], [id number] 03/19/2024 11:26 AM EDT [facility] ThinPrep Vial Cervix uteri structure / Unknown Collection / Unknown 03/16/2024 2:30 PM EDT 03/16/2024 2:31 PM EDT Chencho Keller MD PATHOLOGY/CYTOLOGY ORDERABLES F inal Result [facility]
[address] [place] [address], from Last 3 Months or Most Recently Relevant to Health Maintenance Insurance Care Teams Behavioral Intervention Specialist Relationship Specialty Start Date End Date Vicky Leyva DO [address] [place] [address] PCP - General Family Medicine 09/04/18
--- OUTSIDE RECORDS SUMMARY | 2025-07-27 10:38 | XMS_ITS | Encounter Summary ---
Author Organization [facility] Address [address] [place] [address] Care Team Providers Care Investigator Vice Name Role Phone Vicky Leyva DO Primary Care Provider [phone]- [phone] Encounter Details Date Type Department Care Team (Latest Contact Info) Description 07/11/2025 Travel Social History Tobacco Use Types Packs/Day Years [...] on file documented as of this encounter Plan of Treatment Upcoming Encounters Date Type Department Care Team (Late st Contact Info) Description 08/25/2025 4:45 PM EDT Telemedicine [facility] [address] [address] Vicky Leyva DO [address] [place] [address] documented as of this encounter Visit Diagnoses Not on filedocumented in this encounter Care Teams Investigator Vice Relationship Specialty Start Date End Date Vicky Leyva DO [address] [place] [address] PCP - General Family Medicine 09/04/18 documented as of this encounter
== END 2025-07-26 23:59 | disposition home or self-care (01) ==
LOC: LAB.DROPOF 07-27 10:29
PROVIDERS: PCP Nurse Practitioner; Visit Provider Nurse Practitioner
DX: J06.9 Acute upper respiratory infection, unspecified (principal)
CPT/HCPCS: 87631

== ENCOUNTER 2025-08-19 09:03 | Outpatient (CLI) | payer OTHER, SELFPAY ==
--- OUTSIDE RECORDS SUMMARY | 2025-07-11 09:30 | XMS_ITS | Encounter Summary ---
Author Organization [facility] Address [address] [place] [address] Care Team Providers Care Tubing Drier Name Role Phone Vicky Leyva DO Primary Care Provider [phone]- [phone] Reason for Referral * Behavorial Health/Psych (Routine) - Authorized Specialty Diagnoses / Procedures Referred By Contvivek t Referred To Contact Diagnoses Mood disorder Procedures [place] OFFICE/OUTPATIENT NEW MODERATE MDM 45 MINUTES Vicky Leyva DO [address] [place] [address] Phone: tel: fax: [facility] [address] [place] [address] Phone: tel: fax: Referral ID Status Reason Start Date Expiration Date Visits Requested Visits Authorized [id number] Authorized Specialty Services Required 07/11/2025 10/10/2026 1 1 Scheduling Instructions Schedule counseling- [facility], if possible Reason for Visit * Reason Comments 6 mo f/u Wondering if she cou ld get Rx for Zofran Encounter Details Date Type Department Care Team ([facility] Contact Info) Description 07/11/2025 9:30 AM EDT Office Visit [facility] [address] [place] [phone] Vicky Leyva DO [address] [place] [address] Mood disorder (Primary Dx); Nausea Social History [...] Information Value Date Recorded Sex Assigned at Female 08/19/2025 2:01 PM EDT Legal Sex Female 12:04 PM EDT Gender [...] Care Everywhere. * Major Depressive Disorder Adult Jruj-ia-Ckae (Congolese) documented in this encounter Progress Notes * Vicky Leyva DO - 07/11/2025 9:30 AM EDT Chief Complaint 6 mo f/u (Wondering if she could get Rx for Zofran ) Farnaz Jenkins presents to [facility] History of Present Illness The [...] with Polycystic Ovary Syndrome (PCOS) by her pricer bagger. Her last menstrual period was from 06/25/2025 [...] ok for telehealth . Patient or patient customer response representative verbalized consent for the use of [...] Info) Description 08/25/2025 4:45 PM EDT Telemedicine [facility] [address] [place] [address] Vicky Leyva DO [address] [place] [address] Scheduled Referrals Name Type Priority Associated Diagnoses Order Schedule Ambulatory Referral to Behavioral Health Outpatient Referral Routine Mood disorder Ordered: 07/11/2025 documented as of this encounter Visit Diagnoses Diagnosis Mood disorder- Primary Unspecified episodic mood disorder Nausea Nausea alone documented in this encounter Care Teams Tubing Drier Relationship Specialty Start Date End Date Vicky Leyva DO [address] [place] [address] PCP - General Family Medicine 09/04/18 documented as of this encounter
--- OUTSIDE RECORDS SUMMARY | 2025-08-22 09:11 | XMS_ITS | Encounter Summary ---
Author Organization [facility] Address [address] [place] [address] Care Team Providers Care Account Services Coordinator Name Role Phone Vicky Leyva DO Primary Care Provider [phone]- [phone] Encounter Details Date Type Department Care Team [...] Info) Description 08/25/2025 4:45 PM EDT Telemedicine [facility] [address] [place] [address] Vicky Leyva DO [address] [place] [address] documented as of this encounter Visit Diagnoses Not on filedocumented in this encounter Care Teams Account Services Coordinator Relationship Specialty Start Date End Date Vicky Leyva DO [address] [place], [place] [id number] PCP - General Family Medicine 09/04/18 documented as of this encounter
--- OUTSIDE RECORDS SUMMARY | 2025-08-22 09:11 | XMS_ITS | Clinical Summary ---
Author Organization [facility] Address [address] [place] [phone] Phone Care Team Providers Care Puppy Sitter Name Role Phone Bill Dudley Primary Care [...] age to complete this topic Care Teams Puppy Sitter Relationship Specialty Start Date End Date Bill Dudley [address] [place] [phone] PCP - General Family Medicine 07/23/14
--- OUTSIDE RECORDS SUMMARY | 2025-08-22 09:11 | XMS_ITS | Encounter Summary ---
Author Organization [facility] Address [address] [place] [address] Care Team Providers Care Do All Operator Name Role Phone Vicky Leyva Primary Care Provider +1- [phone] Encounter Details Date Type Department Care Team (Late st Contact Info) Description 02/10/2025 Results Follow-Up [facility] [address] [address] [place] [phone] Jason Santiago APRN [address] [place] [address] Social History Tobacco Use Types [...] were identified. (Results released to patient in MyChart) documented in this encounter Plan of Treatment Upcoming Encounters Date Type Department Care Team (Late st Contact Info) Description 08/25/2025 4:45 PM EDT Telemedicine [facility] [address] [phone] Vicky Leyva DO [address] [place] [address] documented as of this encounter Visit Diagnoses Not on filedocumented in this encounter Care Teams Do All Operator Relationship Specialty Start Date End Date Vicky Leyva DO [address] [place] [address] PCP - General Family Medicine 09/04/18 documented as of this encounter
--- OUTSIDE RECORDS SUMMARY | 2025-08-22 09:11 | XMS_ITS | Encounter Summary ---
Author Organization [facility] Address [address] [place] [address] Care Team Providers Care Cuff Setter Name Role Phone Vicky Leyva DO Primary Care Provider +1- [phone] Reason for Visit * Reason Onset Date Comments REQUEST CALL BACK 08/19/2025 Encounter Details Date Type Department Care Team ([facility] st Contact Info) Description 08/19/2025 Telephone [facility] [address] [facility] [place] [address] Vicky Leyva DO [address] [place] [address] REQUEST CALL BACK Social History Tobacco Use Types Packs/Day Years [...] on file documented as of this encounter Miscellaneous Notes * Telephone Encounter - PowellJovan - 08/19/2025 1:15 PM EDT PATIENT HAS CALLED AND STATED SHE JUST FOUND OUT THAT SHE IS 5 TO 6 WEEKS AND REQUESTING ACALL BACK TO ADVISE IF IT IS OK TO TAKE LAMOTRIGINE. CALL BACK NUMBER IS [phone] documented in this encounter Plan of Treatment Upcoming Encounters Date Type Department Care Team (Late st Contact Info) Description 08/25/2025 4:45 PM EDT Telemedicine [facility] [address] [place] [address] Vicky Leyva DO [address] [place] [address] documented as of this encounter Visit Diagnoses Not on filedocumented in this encounter Care Teams Cuff Setter Relationship Specialty Start Date End Date Vicky Leyva DO [address] [place] [address] PCP - General Family Medicine 09/04/18 documented as of this encounter
--- OUTSIDE RECORDS SUMMARY | 2025-08-22 09:11 | XMS_ITS | Clinical Summary ---
Author Organization [facility] Address [address] [place] [address] Care Team Providers Care Extrusion Former Name Role Phone Vicky Leyva Primary Care Provider Allergies Active Allergy Reactions Criticality Noted Date Comments Peanut-Containing Drug Products Swelling Low 08/17 Azithromycin Swelling,Rash Low 09/04/2018 Medications SUMAtriptan (IMITREX) 100 MG tabletIndications: Intractable migraine without aura and with status migrainosus Take one tablet at onset of headache. May repeat dose one time in 2 hours if headache not relieved. 10 tablet 5 12/02/19 25 Active Additional Information Patient not taking.Reported on 07/11/2025 lamoTRIgine (LaMICtal) 25 MG tabletIndications: Mood disorder Take 1 tab po qd x 14 days, then increase to 2 tabs po qd 60 tablet 1 07/11/20 25 Active ondansetron ODT (ZOFRAN-ODT) 4 MG disintegrating tabletIndications: Nausea Place 1 tablet on the tongue Every 8 (Eight) Hours As Needed for Nausea or Vomiting. 20 tablet 07/11/20 25 Active Active Problems Problem Noted Date Diagnosed Date [...] Encounters Date Type Department Care Team Description 08/19/2025 Telephone [facility] [address] [place] [address] Vicky Leyva DO REQUEST CALL BACK 07/11/2025 9:30 AM EDT Office Visit [facility] [address] [place] [...] Description 08/25/2025 4:45 PM EDT Telemedicine [facility] [address] [address] Vicky Leyva DO [address] [place] [address] Health Maintenance Due Date Last Done Comments ANNUAL PHYSICAL 09/03/2018 HEPATITIS C SCREENING 09/03/2018 Annual Gynecologic Pelvic an d Breast Exam 03/17/2025 03/16/2024 INFLUENZA VACCINE 06/17/2025 PAP SMEAR 03/16/2027 03/16/2024 TDAP/TD VACCINES (3 [...] Procedure Name Priority Date/Time Associated Diagnosis Comments LIQUID-BASED PAP SMEAR WITH HPV GENOTYPING IF ASCUS, [facility] (MINNIE,COR,MAD) Routine 03/16/2024 2:30 PM EDT Encounter for annual routine gynecological examination from Last 3 Months or Most Recently Relevant to Health Maintenance Results * LIQUID-BASED PAP SMEAR WITH HPV GENOTYPING IF ASCUS (MINNIE,COR,MAD) (03/16/2024 2:30 PM EDT) Reference Lab Report [facility] [address] [place] [address] or [phone] Gordon Howe M.D., Ops Analyst PATIENT NAME LABORATORY [address]. [address] [id number] AGE SEX SSN CLIENT REF # [facility] ([place]) 21 2003 F [id number] [facility] [address] BEAVER REQUESTING Tony [place] [address] CHENCHO KELLER DATE COLLECTED DATE RECEIVED DATE [...] of chlamdial and gonococcal disease using the Joanna system. Trichomonas TRICHOMONAS VAGINALIS: Negative The Aptima Trichomonas vaginalis assay is an in vitro qualitative nucleic acid amplification test for the detection of ribosomal RNA to aid in the diagnosis of trichomoniasis. MALT HOUSE LOADER: WENDY COWAN (ASCP) CPT CODES: 68053, 91259, 41356, 84271 03/19/2024 11:26 AM EDT [facility] ThinPrep Vial Cervix uteri structure / Unknown Collection / Unknown 03/16/2024 2:30 PM EDT 03/16/2024 2:31 PM EDT Chencho Keller MD PATHOLOGY/CYTOLOGY ORDERABLES F inablank Result [facility]
[address] [place] [address], from Last 3 Months or Most Recently Relevant to Health Maintenance Insurance Acceptd [place] Care Teams Extrusion Former Relationship Specialty Start Date End Date Vicky Leyva DO [address] [place] [address] PCP - General Family Medicine 09/04/18
== END 2025-08-19 23:59 ==
LOC: LAB.DROPOF 08-22 09:04
PROVIDERS: PCP Student in an Organized Health Care Education/Training Program; Visit Provider Student in an Organized Health Care Education/Training Program
DX: Z32.01 Encounter for pregnancy test, result positive (principal)
CPT/HCPCS: 84144; 84702

== ENCOUNTER 2025-09-16 11:45 | Outpatient (CLI) | payer OTHER, SELFPAY ==
--- OUTSIDE RECORDS SUMMARY | 2025-08-25 16:45 | XMS_ITS | Encounter Summary ---
Author Organization [facility] Address [address] [place] [address] Care Team Providers Care Quilt Stuffer Name Role Phone Vicky Leyva DO Primary Care Provider Reason for Visit * Reason Comments Follow-up mood disorder Pt just recently fou nd out Encounter Details Date Type Department Care Team (Late st Contact Info) Description 08/25/2025 4:45 PM EDT Telemedicine [facility] [address] [place] [address] Vicky Leyva DO [address] [place] [address] Mood disorder (Primary Dx); Less than 8 weeks gestation of Social History Tobacco Use Types Packs/Day Years Used Date Smoking Tobacco: Never Passive Smoke Exposure: Past Smokeless Tobacco: Never Tobacco Cessation:Counseling Given: Not Answered Alcohol Use Standard Drinks/Week Comments Never 0 (1 standard drink = 0.6 oz pur e alcohol) PHQ-2 Answer Date Recorded Retired PHQ-9: Brief Depression Severity Measure Score 1 01/03/2023 PHQ-2 Answer Date Recorded Patient Health Questionnaire-2 Score 1 12/02/2024 Comments Yes Sex and Gender Information Value Date Recorded Sex Assigned at Female 08/19/2025 2:01 PM EDT Legal Sex Female 12:04 PM EDT Gender Identity Not on file Sexual Orientation Not on file documented as of this encounter Progress Notes * Vicky Leyva DO - 08/25/2025 4:45 PM EDT Chief Complaint Follow-up, mood disorder , and (Pt just recently found out ) Subjective Juan Jenkins presents to [facility] History of Present Illness Following up after starting lamotrigine with mood disorder. Started it on 07/11/25 Feels that the medication has helped with irritability. Thinks that dose increase could improve more. LMP: 07/11/25 Took test last week, positive. She also tested with a clinic in [place], also positive.Has first OB appt on 09/16/25. She has confirmed with her obgyn that lamotrigine is ok to take during . The following portions of the patient's history were reviewed and updated as appropriate: allergies, current medications, past family history, past medical history, past social history, past surgicalhistory, and problem list. Objective Physical Exam HENT: Head: Normocephalic. Pulmonary: Effort: Pulmonary effort is normal. No respiratory distress. Neurological: Mental Status: She is alert. Psychiatric: Mood and Affect: Mood normal. Result Review : Assessment and Plan Diagnoses and all orders for this visit: 1. Mood disorder (Primary) - lamoTRIgine (LaMICtal) 100 MG tablet; Take 1 tablet by mouth Daily. Dispense: 90 tablet; Refill: 1 2. Less than 8 weeks gestation of Mood and irritability improved since starting lamotrigine. Will increase to 100 mg daily. Keep upcoming appointment with obgyn. I spent 15 minutes caring for Juan on this date of service. This time includes time spent by me in the following activities:performing a medically appropriate examination and/or evaluation , ordering medications, tests, or procedures, and documenting information in the medical record Follow Up Return in about 6 months (around 02/23/2026) for Recheck. Patient was given instructions and counseling regarding her condition or for health maintenance advice. Please see specific information pulled into the AVS if appropriate. documented in this encounter Plan of Treatment Not on file documented as of this encounter Visit Diagnoses Diagnosis Mood disorder- Primary Unspecified episodic mood disorder Less than 8 weeks gestation of documented in this encounter Care Teams Quilt Stuffer Relationship Specialty Start Date End Date Vicky Leyva DO [address] [place] [address] PCP - General Family Medicine 09/04/18 documented as of this encounter
--- OUTSIDE RECORDS SUMMARY | 2025-09-16 11:47 | XMS_ITS | Clinical Summary ---
Author Organization [facility] Address [address] [place] [address] Phone Care Team Providers Care Pay Station Department Manager Name Role Phone Bill Dudley Primary Care [...] 3-dose series) 2022 COVID-19 Vaccine (1 - 2024-2 6 season) 2025 Influenza Vaccine (#1) 2025 Pneumococcal Vaccine 0-49 Aged Out No longer eligible based on patient's age to complete this topic Care Teams Pay Station Department Manager Relationship Specialty Start Date End Date Bill Dudley [address] [place] [phone] PCP - General Family Medicine 07/23/14
--- OUTSIDE RECORDS SUMMARY | 2025-09-16 11:47 | XMS_ITS | Clinical Summary ---
Author Organization [facility] Address [address] [place] [address] Care Team Providers Care Tax Staff Accountant Name Role Phone Vicky Leyva Primary Care Provider [phone] Allergies Active Allergy Reactions Criticality Noted Date Comments Peanut-Containing Drug Products Swelling Low 08/17 Azithromycin Swelling,Rash Low 09/04/2018 Medications ondansetron ODT (ZOFRAN-ODT) 4 MG disintegrating tabletIndications: Nausea Place 1 tablet on the tongue Every 8 (Eight) Hours As Needed for Nausea or Vomiting. 20 tablet 07/11/20 25 Active lamoTRIgine (LaMICtal) 100 MG tabletIndications: Mood disorder Take 1 tablet by mouth Daily. 90 tablet 1 08/25/20 25 Active SUMAtriptan (IMITREX) 100 MG tabletIndications: Intractable migraine without aura and with status migrainosus Take one tablet at onset of headache. May repeat dose one time in 2 hours if headache not relieved. 10 tablet 5 12/02/19 25 025 Discontinue d(Patient Reported Not Taking) lamoTRIgine (LaMICtal) 25 MG tabletIndications: Mood disorder Take 1 tab po qd x 14 days, then increase to 2 tabs po qd 60 tablet 1 07/11/20 25 025 Discontinue d(Reorder) Active Problems Problem Noted Date Diagnosed Date [...] & Plan (01/20/2024 2:31 PM EST): Jaleel Jenkins reports that she has never smoked cigarettes [...] prophylactic 3. Ibuprofen and Imitrex for abortive Comments Yes Encounters Date Type Department Care Team Description 08/25/2025 4:45 PM EDT Telemedicine [facility] [address] [place], [place] [address] Vicky Leyva DO Mood disorder (Primary Dx); Less than 8 weeks gestation of 08/19/2025 Telephone [facility] [address] [place], [place] [address] Vicky Leyva DO REQUEST CALL BACK 07/11/2025 9:30 AM EDT Office Visit [facility] [address] [place], [place] [address] Vicky Leyva DO Mood disorder (Primary Dx); [...] Name Status Comments Father Alive Maternal Grandfather maximiliano Maternal Grandmother Mother Alive Paternal Grandfather Unknown [...] 07/11/2025 9:23 AM EDT Plan of Treatment Health Maintenance Due Date Last Done Comments ANNUAL PHYSICAL 09/03/2018 HEPATITIS C SCREENING 09/03/2018 CHLAMYDIA SCREENING 03/16/2025 03/16/2024 Annual Gynecologic Pelvic an d Breast Exam 03/17/2025 03/16/2024 INFLUENZA VACCINE 06/17/2025 PAP SMEAR 03/16/2027 03/16/2024 TDAP/TD VACCINES (3 - Td or Tdap) 07/23/2034 07/23/2024, 06/05/2015 RSV Vaccine - Adults (1 - 1-dose 75+ series) 2078 Pneumococcal Vaccine 0-49 Aged Out 2003, 2003, 2003 No longer eligible based on patient's age to complete this topic MENINGOCOCCAL VACCINE Completed 07/06/2019 , 06/05/2015, 06/05/2015 MENINGOCOCCAL B VACCINE Completed 10/21/20 19, 07/06/2019 HPV VACCINES Completed 06/07/2020, 10/21/2019, 07/06/2019 Procedures Procedure Name Priority Date/Time Associated Diagnosis Comments LIQUID-BASED PAP SMEAR WITH HPV GENOTYPING IF ASCUS, [facility] (MINNIE,COR,MAD) Routine 03/16/2024 2:30 PM EDT Encounter for annual routine gynecological examination from Last 3 Months or Most Recently Relevant to Health Maintenance Results * LIQUID-BASED PAP SMEAR WITH HPV GENOTYPING IF ASCUS (MINNIE,COR,MAD) (03/16/2024 2:30 PM EDT) Reference Lab Report [facility] [address] [place] [address] or [phone] Gordon Howe M.D., Health Care Marketing Manager PATIENT NAME LABORATORY [address]. [address] [id number] AGE SEX SSN CLIENT REF # [facility] ([place]) 21 2005 F [id number] Ori BEAVER REQUESTING Tony ATTENDING [place] [address] CHENCHO KELLER DATE COLLECTED DATE RECEIVED DATE [...] of chlamdial and gonococcal disease using the Wilmot system. Trichomonas TRICHOMONAS VAGINALIS: Negative The Aptima Trichomonas vaginalis assay is an in vitro qualitative nucleic acid amplification test for the detection of ribosomal RNA to aid in the diagnosis of trichomoniasis. COPYWRITER: WENDY COWAN (ASCP) CPT CODES: 75092, 58195, 87244, 75204 03/19/2024 11:26 AM EDT [facility] ThinPrep Vial Cervix uteri structure / Unknown Collection / Unknown 03/16/2024 2:30 PM EDT 03/16/2024 2:31 PM EDT Chencho Keller MD PATHOLOGY/CYTOLOGY ORDERABLES F inal Result [facility]
[address] [place] [address], from Last 3 Months or Most Recently Relevant to Health Maintenance Insurance Care Teams Tax Staff Accountant Relationship Specialty Start Date End Date Vicky Leyva DO [address] [place] [address] PCP - General Family Medicine 09/04/18
--- OUTSIDE RECORDS SUMMARY | 2025-09-16 11:47 | XMS_ITS | Encounter Summary ---
Author Organization [facility] Address [address] [place] [address] Care Team Providers Care Circuit Board Drafter Name Role Phone Vicky Leyva DO Primary Care Provider [phone]- [phone] Reason for Visit * Reason Onset Date Comments REQUEST CALL BACK 08/19/2025 Encounter Details Date Type Department Care Team ([facility] st Contact Info) Description 08/19/2025 Telephone [facility] [address] [facility] [address] Vicky Leyva DO [address] [place] [address] REQUEST CALL BACK Social History [...] encounter Miscellaneous Notes * Telephone Encounter - Chrystal West LPN - 08/31/2025 2:33 PM EDT See o/v note * Telephone Encounter - Vicky Leyva DO - 08/22/2025 6:06 PM EDT She can remain on the medication. Is she scheduled with Obgyn? * Telephone Encounter - Jovan Powell - 08/19/2025 1:15 PM EDT PATIENT HAS CALLED AND STATED SHE JUST FOUND OUT THAT SHE IS 5 TO 6 WEEKS AND REQUESTING ACALL BACK TO ADVISE IF IT IS OK TO TAKE LAMOTRIGINE. CALL BACK NUMBER IS [phone] documented in this encounter Plan of Treatment Not on file documented as of this encounter Visit Diagnoses Not on filedocumented in this encounter Care Teams Circuit Board Drafter Relationship Specialty Start Date End Date V[place] [address] PCP - General Family Medicine 09/04/18 documented as of this encounter
--- OUTSIDE RECORDS SUMMARY | 2025-09-16 11:47 | XMS_ITS | Encounter Summary ---
Author Organization [facility] Address [address] [place] [address] Care Team Providers Care Cutting Machine Operator Name Role Phone Vicky Leyva Primary Care Provider [phone]- [phone] Encounter Details Date Type Department Care Team (Late st Contact Info) Description 02/10/2025 Results Follow-Up [facility] [address] [facility] [address] [place] [phone] Jason Santiago APRN [address] [facility] [address] [place] [address] Social History Tobacco Use Types [...] on filedocumented in this encounter Care Teams Cutting Machine Operator Relationship Specialty Start Date End Date Vicky Leyva DO [address] [place] [address] PCP - General Family Medicine 09/04/18 documented as of this encounter
[2025-09-16 12:09] LABS: Hematocrit 37.3 % (37.0-47.0); Hemoglobin 12.6 g/dL (12.2-16.2); Immature Granulocytes % 0.4 %; Mean Corpuscular HGB Conc 33.8 g/dL (31.8-35.4); Mean Corpuscular Hemoglobin 28.8 pg (27.0-31.2); Mean Corpuscular Volume 85.4 fl (81-99); Nucleated Red Blood Cells % 0 %; Platelet Count 403 K/mm3 (142-424); Red Blood Count 4.37 M/mm3 (4.20-5.40); Red Cell Distribution Width-SD 41.4 fL; White Blood Count 9.0 K/mm3 (4.8-10.8)
[2025-09-16 13:36] LABS: Hepatitis C Ab Qual. W/ RFX NEGATIVE (Negative)
[2025-09-16 13:38] LABS: RPR W/RFX Titers Nonreactive (Nonreactive)
[2025-09-17 08:25] LABS: Hepatitis B Surface Antigen Negative (Negative); Rubella Antibodies, IgG 4.89 index (Immune >0.99)
== END 2025-09-16 23:59 | disposition home or self-care (01) ==
LOC: LAB 11:46
PROVIDERS: PCP Family Medicine; Visit Provider Obstetrics & Gynecology
DX: Z34.91 Encounter for supervision of normal pregnancy, unspecified, first trimester (principal)
CPT/HCPCS: 36415; 85025; 86592; 86762; 86787; 86803; 86850; 87340; 87389

== ENCOUNTER 2025-10-04 14:39 | Outpatient (CLI) | payer OTHER, SELFPAY ==
--- NOTE | 2025-10-04 15:00 | US_ITS ---
PROCEDURE: US OB FOLLOW UP CLINICAL INDICATION: 11 weeks nuchal tranclucency COMPARISON: No exams were available for comparison FINDINGS: Transabdominal sonographic images of the pelvis were obtained. The following parameters are obtained: From her established due date she is 10weeks 6days Viable fetus in the breech presentation. Nuchal thickness measures 1.1 mm-1.3 mm. Considered normal at this gestational age. heart rate: 185bpm bpm. Amniotic fluid: Subjectively appears normal IMPRESSION: 1. Viable fetus within the uterine cavity in the breech presentation. 2. The fluid subjectively appears normal. 3. Nuchal thickness measures 1.1 mm-1.3 mm and is considered normal. 4. Suggest repeat scan at 20 weeks for complete anatomy. Dictated by: Arash Amos MD 10/04/2025 17:13 Arash Amos MD in OV 10/04/2025 17:13
== END 2025-10-04 23:59 | disposition home or self-care (01) ==
LOC: RAD 14:40
PROVIDERS: PCP Family Medicine; Visit Provider Obstetrics & Gynecology
DX: O32.1XX0 Maternal care for breech presentation, not applicable or unspecified (principal); O26.611 Liver and biliary tract disorders in pregnancy, first trimester; K80.20 Calculus of gallbladder without cholecystitis without obstruction; Z3A.10 10 weeks gestation of pregnancy
CPT/HCPCS: 76816

== ENCOUNTER 2025-11-07 12:16 | Outpatient (CLI) | payer OTHER, SELFPAY ==
[2025-11-07 15:36] LABS: Coronavirus 19, PCR Not Detected (NotDetected); Influenza A, PCR Not Detected (NotDetected); Influenza B, PCR Not Detected (NotDetected)
--- OUTSIDE RECORDS SUMMARY | 2025-11-08 13:27 | XMS_ITS | Encounter Summary ---
Author Organization [facility] Address [address] [place] [address] Care Team Providers Care Assembler Liquid Center Name Role Phone Vicky Leyva Primary Care Provider [phone]- [phone] Encounter Details Date Type Department Care Team (Late st Contact Info) Description 02/10/2025 Results Follow-Up [facility] [address] [facility] [address] [place] [phone] Jason Santiago APRN [address] [facility] [address] [place] [address] Social History Tobacco Use Types [...] on filedocumented in this encounter Care Teams Assembler Liquid Center Relationship Specialty Start Date End Date Vicky Leyva DO [address] [place] [address] PCP - General Family Medicine 09/04/18 documented as of this encounter
--- OUTSIDE RECORDS SUMMARY | 2025-11-08 13:27 | XMS_ITS | Clinical Summary ---
Author Organization [facility] Address [address] [place] [address] Care Team Providers Care C Unix Developer Name Role Phone Vicky Leyva Primary Care Provider Allergies Active Allergy Reactions Criticality Noted Date Comments Peanut-Containing Drug Products Swelling Low 08/17 Azithromycin Swelling,Rash Low 09/04/2018 Medications ondansetron ODT (ZOFRAN-ODT) 4 MG disintegrating tabletIndications:N ausea Place 1 tablet on the tongue Every 8 (Eight) Hours As Needed for Nausea or Vomiting. 20 tablet 5 Active lamoTRIgine (LaMICtal) 100 MG tabletIndications:M ood disorder Take 1 tablet by mouth Daily. 90 tablet 1 5 Active Active Problems Problem Noted Date Diagnosed [...] Team Description 08/25/2025 4:45 PM EDT Telemedicine [facility] [address] [place] [address] Vicky Leyva DO Mood disorder (Primary Dx); Less than 8 weeks gestation of 08/19/2025 Telephone [facility] [address] [place] [address] Vicky Leyva DO REQUEST CALL BACK from Last 3 Months Immunizations Immunization Administration [...] Name Priority Date/Time Associated Diagnosis Comments SCANNED - IMAGING 10/04/2025 SCANNED - LABS 09/16/2025 SCANNED - LABS 09/16/2025 SCANNED - LABS 09/16/2025 SCANNED - LABS 09/16/2025 SCANNED - LABS 09/16/2025 LIQUID-BASED PAP SMEAR WITH HPV GENOTYPING IF ASCUS, [facility] (MINNIE,COR,MAD) Routine 03/16/2024 2:30 PM EDT Encounter for annual routine gynecological examination from Last 3 Months or Most Recently Relevant to Health Maintenance Results * IMAGING SCANNED (10/04/2025) Anatomical Region Laterality Modality Radiographic Marci ging Vicky Marj Leyva DO IMG DIAGNOSTIC IMAGING ORDE RABLES Final Result * LABS SCANNED (09/16/2025) Only the most recent of5 resultswithin the time period is included. Vciky Leyva DO LAB BLOOD ORDERABLES Final Result * LIQUID-BASED PAP SMEAR WITH HPV GENOTYPING IF ASCUS (MINNIE,COR,MAD) (03/16/2024 2:30 PM EDT) Pathologist [facility] Reference Lab Report [facility] [address] [place] [address] or [phone] Gordon Howe M.D., Faro Dealer PATIENT NAME LABORATORY [address] [id number] AGE SEX SSN CLIENT REF # [facility] ([place]) 21 2005 F [id number] [facility] A[address] BEAVER REQUESTING Tony [place] [address] CHENCHO KELLER DATE COLLECTED DATE RECEIVED DATE [...] of chlamdial and gonococcal disease using the [place] system. Trichomonas TRICHOMONAS VAGINALIS: Negative The Aptima Trichomonas vaginalis assay is an in vitro qualitative nucleic acid amplification test for the detection of ribosomal RNA to aid in the diagnosis of trichomoniasis. ENGINEERING TECHNICAL WRITER: WENDY COWAN (ASCP) CPT CODES: 42535, 27468, 60352, [id number] 03/19/2024 11:26 AM EDT [facility] ThinPrep Vial Cervix uteri structure / Unknown Collection / Unknown 03/16/2024 2:30 PM EDT 03/16/2024 2:31 PM EDT Chencho Keller MD PATHOLOGY/CYTOLOGY ORDERABLES F inal Result [facility]
[address] [place] [address], from Last 3 Months or Most Recently Relevant to Health Maintenance Insurance [facility] Care Teams C Unix Developer Relationship Specialty Start Date End Date Vicky Leyva DO [address] [place], [place] [id number] PCP - General Family Medicine 09/04/18
--- OUTSIDE RECORDS SUMMARY | 2025-11-08 13:27 | XMS_ITS | Clinical Summary ---
Author Organization [facility] Address [address] [place] [phone] Phone Care Team Providers Care Machine Spreader Name Role Phone Bill Dudley Primary Care [...] age to complete this topic Care Teams Machine Spreader Relationship Specialty Start Date End Date Bill Dudley [address] [place] [phone] PCP - General Family Medicine 07/23/14
== END 2025-11-07 23:59 | disposition home or self-care (01) ==
LOC: LAB.DROPOF 11-08 13:23
PROVIDERS: PCP Family Medicine; Visit Provider Student in an Organized Health Care Education/Training Program
DX: R52 Pain, unspecified (principal)
CPT/HCPCS: 87631